=== PATIENT | female | born 2000 | race African-American/Black ===

== ENCOUNTER 2022-03-13 19:56 | Outpatient (CLI) | payer SELFPAY | END 2022-03-13 19:57 | disposition EMS.NT | LOC: EMS 19:56 | DX: M79.89 Other specified soft tissue disorders (principal) ==

== ENCOUNTER 2022-03-19 08:00 | Outpatient (CLI) | payer OTHER ==
[2022-03-19 23:26] LABS: BACTERIAL VAGINOSIS DNA NEGATIVE (NEGATIVE); CANDIDA GLABRATA DNA NEGATIVE (NEGATIVE); CANDIDA GROUP DNA POSITIVE (NEGATIVE); CANDIDA KRUSEI DNA NEGATIVE (NEGATIVE); TRICHOMONAS VAGINALIS DNA NEGATIVE (NEGATIVE)
[2022-03-20 00:09] LABS: CHLAMYDIA TRACHOMATIS DNA NEGATIVE (NEGATIVE); NEISSERIA GONORRHOEAE DNA NEGATIVE (NEGATIVE)
[2022-03-21 05:07] LABS: RPR Non Reactive (Non Reactive)
[2022-03-21 08:07] LABS: HIV SCREEN 4TH GENERATION Non Reactive (Non Reactive)
[2022-03-21 11:08] LABS: HCV AB 0.2 s/co ratio (0.0-0.9)
[2022-03-22 09:08] LABS: HSV 1 IGG TYPE SPEC >62.20 index (0.00-0.90); HSV 2 IGG TYPE SPEC <0.91 index (0.00-0.90)
== END 2022-03-19 23:59 | disposition home or self-care (01) ==
LOC: LAB.N 08:00
PROVIDERS: ATTEND Family Medicine
DX: Z11.3 Encounter for screening for infections with a predominantly sexual mode of transmission (principal)
CPT/HCPCS: 36415; 81514; 86592; 86695; 86696; 86803; 87389; 87491; 87591; 87661

== ENCOUNTER 2022-06-18 08:00 | Outpatient (CLI) | payer OTHER ==
[2022-06-19 10:48] LABS: CHLAMYDIA TRACHOMATIS DNA NEGATIVE (NEGATIVE); NEISSERIA GONORRHOEAE DNA NEGATIVE (NEGATIVE)
[2022-06-19 13:16] LABS: BACTERIAL VAGINOSIS DNA NEGATIVE (NEGATIVE); CANDIDA GROUP DNA POSITIVE (NEGATIVE); CANDIDA KRUSEI DNA NEGATIVE (NEGATIVE); TRICHOMONAS VAGINALIS DNA NEGATIVE (NEGATIVE)
[2022-06-19 13:17] LABS: CANDIDA GLABRATA DNA NEGATIVE (NEGATIVE)
== END 2022-06-18 23:59 | disposition home or self-care (01) ==
LOC: LAB 08:00
PROVIDERS: ATTEND Nurse Practitioner
DX: L29.2 Pruritus vulvae (principal)
CPT/HCPCS: 81514; 87086; 87491; 87591; 87661

== ENCOUNTER 2022-07-20 08:00 | Outpatient (CLI) | payer OTHER ==
[2022-07-21 19:42] LABS: BACTERIAL VAGINOSIS DNA NEGATIVE (NEGATIVE); CANDIDA GLABRATA DNA NEGATIVE (NEGATIVE); CANDIDA GROUP DNA POSITIVE (NEGATIVE); CANDIDA KRUSEI DNA NEGATIVE (NEGATIVE); TRICHOMONAS VAGINALIS DNA NEGATIVE (NEGATIVE)
== END 2022-07-20 23:59 | disposition home or self-care (01) ==
LOC: LAB.N 08:00
PROVIDERS: ATTEND Registered Nurse
DX: R82.79 Other abnormal findings on microbiological examination of urine (principal); L29.8 Other pruritus; N89.8 Other specified noninflammatory disorders of vagina
CPT/HCPCS: 81514; 87086

== ENCOUNTER 2022-09-11 18:12 | Emergency (ER) | payer OTHER ==
[2022-09-11] MEDS ORDERED: METOCLOPRAMIDE 10 MG/2 ML VIAL IVP STA (18:28)
[2022-09-11] MEDS ORDERED: SODIUM CHLORIDE 0.9% 1,000 ML IV STA (18:28)
--- NOTE | 2022-09-11 18:34 | ED Physician Documentation ---
History of Present Illness - Stated complaint Stated Complaint: VOMITING - Chief complaint Chief Complaint: Abd Pain - History obtained from History obtained from: Patient - Additonal information Additional information: 22-year-old G1 at approximately 7 weeks whose had vomiting for the last 3 weeks. Has not sought medical care before tonight. There is no associated abdominal pain, pelvic pain, cramping or bleeding. PD PAST MEDICAL HISTORY - Present Medications Home Medications: Ambulatory Orders Medication Instructions Recorded Confirmed Metoclopramide [Reglan] 10 mg PO Q6H PRN #20 tablet 09/11/22 - Allergies Allergies/Adverse Reactions: Allergies Allergy/AdvReac Type Severity Reaction Status Date / Time No Known Drug Allergies Allergy Verified 09/11/22 18:19 PD ED PE NORMAL - Vitals Vital signs reviewed: Yes - General General: Alert and oriented X 3, No acute distress - Abdomen Abdomen: Soft, Non tender - Neuro Neuro: Alert and oriented X 3, Normal speech Results - Vitals Vitals: Vital Signs - 24 hr 09/11/22 18:14 Temperature 36.6 C Heart Rate 81 Respiratory 18 Rate Blood Pressure 141/90 H O2 Saturation 100 Oxygen O2 Source Room air - Labs Labs: Laboratory Tests 09/11/22 18:41 Sodium 135 Potassium 3.5 Chloride 104 Carbon Dioxide 24 Anion Gap 7.0 BUN 7 Creatinine 0.7 Estimated GFR (MDRD) 126 Glucose 95 Calcium 8.9 PD Medical Decision Making - ED course ED course: 22-year-old woman with hyperemesis gravidarum. Benign exam. BMP normal. Feeling much better after IV fluids and Reglan. Departure - Departure Disposition: 01 Home, Self Care Clinical Impression: Hyperemesis gravidarum Instructions: ED Preg Morning Sickness Prescriptions: Metoclopramide [Reglan] 10 mg PO Q6H PRN #20 tablet PRN Reason: nausea or headache Comments: I sent your prescription electronically to [facility] in [place]. Follow-up with your PCM call on Tuesday for an appointment. Return for new or worsening symptoms.
[2022-09-11 19:09] LABS: CALCIUM 8.9 mg/dL (8.5-10.3); CREATININE 0.7 mg/dL (0.4-1.0); POTASSIUM 3.5 mmol/L (3.5-5.0)
[2022-09-11] MEDS ORDERED: ONDANSETRON ODT 4 MG Prepack 2 TL STA (19:25)
[2022-09-11 19:33] VITALS: BP 114/76
== END 2022-09-11 19:44 | disposition home or self-care (01) ==
LOC: ED 18:12
DX: O21.0 Mild hyperemesis gravidarum (principal); Z3A.01 Less than 8 weeks gestation of pregnancy
CPT/HCPCS: 36415; 80048; 96374; 99283; J2765

== ENCOUNTER 2022-09-24 08:00 | Outpatient (CLI) | payer OTHER ==
[2022-09-24 17:01] LABS: BILIRUBIN,URINE NEGATIVE (NEGATIVE); GLUCOSE, URINE (UA) NEGATIVE (NEGATIVE); KETONES,URINE (UA) NEGATIVE (NEGATIVE); LEUKOCYTE ESTERASE, URINE NEGATIVE (NEGATIVE); NITRITE,URINE NEGATIVE (NEGATIVE); OCCULT BLOOD,URINE NEGATIVE (NEGATIVE); PROTEIN,URINE NEGATIVE (NEGATIVE); UROBILINOGEN,URINE 1 (NORMAL) E.U./dL (NORMAL)
[2022-09-24 17:05] LABS: CLARITY,URINE CLEAR (CLEAR)
[2022-09-24 17:43] LABS: BACTERIA,URINE Rare /HPF (None Seen); MUCUS,URINE Moderate Strands; RBC,URINE 0-5 /HPF (0-5); SQUAMOUS EPITHELIAL CELL,UR FEW Squamous (<= Few); WBC,URINE 0-3 /HPF (0-5)
== END 2022-09-24 23:59 | disposition home or self-care (01) ==
LOC: LAB.WC 08:00
PROVIDERS: ATTEND Nurse Practitioner
DX: Z34.90 Encounter for supervision of normal pregnancy, unspecified, unspecified trimester (principal)
CPT/HCPCS: 81001; 87086

== ENCOUNTER 2022-09-26 13:57 | Emergency (ER) | payer OTHER ==
[2022-09-26] MEDS ORDERED: SODIUM CHLORIDE 0.9% 1,000 ML IV STA (14:39)
[2022-09-26] MEDS ORDERED: ONDANSETRON 4 MG/2 ML VIAL IVP STA (14:39)
[2022-09-26 14:43] LABS: BASOPHILS % (AUTO) 0.4 %; EOSINOPHILS # (AUTO) 0.1 10^3/uL (0.0-0.7); EOSINOPHILS % (AUTO) 0.9 %; HCT - HEMATOCRIT 34.8 % (37.0-47.0); HGB - HEMOGLOBIN 11.9 g/dL (12.0-16.0); LYMPHOCYTES # (AUTO) 1.7 10^3/uL (1.5-3.5); LYMPHOCYTES % (AUTO) 24.2 %; MEAN CORPUSCULAR HEMOGLOBIN 31.2 pg (27.0-31.0); MEAN CORPUSCULAR HGB CONC 34.2 g/dL (32.0-36.0); MEAN CORPUSCULAR VOLUME 91.1 fL (81.0-99.0); MEAN PLATELET VOLUME 10.4 fL (7.9-10.8); MONOCYTES # (AUTO) 0.5 10^3/uL (0.0-1.0); MONOCYTES % (AUTO) 7.3 %; NEUTROPHILS # (AUTO) 4.6 10^3/uL (1.5-6.6); NEUTROPHILS % (AUTO) 66.9 %; PLT - PLATELET COUNT 250 10^3/uL (130-450); RED BLOOD COUNT 3.82 10^6/uL (4.20-5.40); RED CELL DISTRIBUTION WIDTH 11.2 % (12.0-15.0); WHITE BLOOD COUNT 6.9 x10^3/uL (4.8-10.8)
--- NOTE | 2022-09-26 14:46 | ED Physician Documentation ---
History of Present Illness - Stated complaint Stated Complaint: FEMALE - Chief complaint Chief Complaint: Abd Pain - Additonal information Additional information: 22-year-old female presents emergency department for evaluation of vaginal spotting, uncontrolled vomiting and left-sided abdominal pain. Currently . G1, P0. LMP 07/22/2022. Has not yet established with OB but is scheduled to in early October. Has not yet had an ultrasound of the . Was seen previously in this ER for hyperemesis gravidarum. She was discharged with prescription of Reglan which she reports is not helping the nausea though she did find the Zofran that was administered in the ER previously helpful. Denies any previous past medical history. Review of Systems Constitutional: denies: Fever Cardiac: reports: Reviewed and negative Respiratory: reports: Reviewed and negative GI: reports: Abdominal Pain, Nausea, Vomiting : reports: LMP (07/22/2022), Vaginal bleeding Skin: reports: Reviewed and negative PD PAST MEDICAL HISTORY - Present Medications Home Medications: Ambulatory Orders Medication Instructions Recorded Confirmed Ondansetron Odt [Zofran] 4 mg TL Q6H PRN #10 tablet 09/26/22 - Allergies Allergies/Adverse Reactions: Allergies Allergy/AdvReac Type Severity Reaction Status Date / Time No Known Drug Allergies Allergy Verified 09/26/22 14:11 PD ED PE NORMAL - General General: Alert and oriented X 3, No acute distress (Actively vomiting), Well developed/nourished - HEENT HEENT: PERRL - Neck Neck: Supple, no meningeal sign - Cardiac Cardiac: RRR, No murmur - Respiratory Respiratory: No respiratory distress - Abdomen Abdomen: Normal bowel sounds, Soft. No: Non tender (Mild nonfocal left lower quadrant abdominal tenderness elicited without guarding or rebound) - Back Back: No CVA TTP - Derm Derm: Normal color, Warm and dry, No rash - Extremities Extremities: No deformity - Neuro Neuro: Alert and oriented X 3 Eye Opening: Spontaneous Motor: Obeys Commands Verbal: Oriented GCS Score: 15 Results - Vitals Vitals: Vital Signs - 24 hr 09/26/22 09/26/22 14:08 16:23 Temperature 36.6 C Heart Rate 86 92 Respiratory 16 16 Rate Blood Pressure 126/74 123/95 H O2 Saturation 100 100 Oxygen O2 Source Room air - Labs Labs: Laboratory Tests 09/26/22 09/26/22 09/26/22 14:30 14:30 14:30 WBC 6.9 RBC 3.82 L Hgb 11.9 L Hct 34.8 L MCV 91.1 MCH 31.2 H MCHC 34.2 RDW 11.2 L Plt Count 250 MPV 10.4 Neut # (Auto) 4.6 Lymph # (Auto) 1.7 [place] # (Auto) 0.5 Eos # (Auto) 0.1 Baso # (Auto) 0.0 Absolute Nucleated RBC 0.00 Nucleated RBC % 0.0 Sodium 136 Potassium 3.6 Chloride 104 Carbon Dioxide 25 Anion Gap 7.0 BUN 7 Creatinine 0.6 Estimated GFR (MDRD) 150 Glucose 102 H Calcium 8.7 HCG, Quant Urine Color Urine Clarity Urine pH Ur Specific [place] Urine Protein Urine Glucose (UA) Urine Ketones Urine Occult Blood Urine Nitrite Urine Bilirubin Urine Urobilinogen Ur Leukocyte Esterase Urine RBC Urine WBC Ur Squamous Epith Cells Amorphous Sediment Urine Bacteria Ur Microscopic Review Urine Culture Comments Blood Type O POSITIVE 09/26/22 09/26/22 14:30 15:25 WBC RBC Hgb Hct MCV MCH MCHC RDW Plt Count MPV Neut # (Auto) Lymph # (Auto) [place] # (Auto) Eos # (Auto) Baso # (Auto) Absolute Nucleated RBC Nucleated RBC % Sodium Potassium Chloride Carbon Dioxide Anion Gap BUN Creatinine Estimated GFR (MDRD) Glucose Calcium HCG, Quant 244037.00 Urine Color YELLOW Urine Clarity HAZY Urine pH 7.0 Ur Specific [place] 1.025 Urine Protein NEGATIVE Urine Glucose (UA) 100 H Urine Ketones NEGATIVE Urine Occult Blood LARGE H Urine Nitrite NEGATIVE Urine Bilirubin NEGATIVE Urine Urobilinogen 0.2 (NORMAL) Ur Leukocyte Esterase NEGATIVE Urine RBC 0-5 Urine WBC 0-3 Ur Squamous Epith Cells MANY Squamous H Amorphous Sediment Rare Urine Bacteria Few Ur Microscopic Review INDICATED Urine Culture Comments NOT INDICATED Blood Type - Rads (name of study) OB US Relevant Findings:: Other (Per neurology technologist positive IUP 10 weeks 1 day with heart rate of 187. There is a 2 cm subchorionic hemorrhage at the fundus. She does have a right-sided corpus luteal cyst.) PD Medical Decision Making - ED course Complexity details: reviewed results, re-evaluated patient, considered differential, d/w patient ED course: 22-year-old female presents the emergency department for evaluation of vaginal spotting in first trimester . She is Rh+. She had also reported some left lower quadrant abdominal pain. Given that she has not yet had an ultrasound established IUP 1 was completed today in the ER. I did obtain CBC, BMP and urinalysis. Per my interpretation no acute worrisome findings. An ultrasound showed a 10-week live fetus with heart rate of 189. There was an associated 2 cm perigestational/subchorionic hemorrhage. This finding was discussed with the patient. She did get improvement in her nausea and vomiting with the use of a liter of fluids and Zofran. Previously Reglan had been prescribed for her. I have sent a prescription for Zofran to the [facility] as it seems effective in managing her nausea. The usual emergent return precautions were discussed for worsening symptoms. Departure - Departure Disposition: 01 Home, Self Care Clinical Impression: Threatened miscarriage in early , Hyperemesis gravidarum Subchorionic hemorrhage in first trimester Qualifiers: Fetus number: single or unspecified fetus Qualified Code(s): O41.8X10 - Other specified disorders of amniotic fluid and membranes, first trimester, not applicable or unspecified; O46.8X1 - Other antepartum hemorrhage, first trimester Condition: Stable Record reviewed to determine appropriate education?: Yes Instructions: ED Preg Morning Sickness Prescriptions: Ondansetron Odt [Zofran] 4 mg TL Q6H PRN #10 tablet PRN Reason: Nausea / Vomiting Comments: You are seen today because you have been having some persistent nausea and vomiting despite the use of metoclopramide as well as noticing some vaginal bleeding and spotting. Your labs today appear normal for . There is no infection in your urine. The ultrasound shows that you are 10 weeks 1 day along with a fetus that had a heart rate of 189 which is normal. There was no associated finding of a perigestational bleed or subchorionic hemorrhage. This is where the placenta can begin to tear away from the uterus wall. This can lead to miscarriage but many women who have a subchorionic hemorrhage will go on to have a normal . Please discuss this with the women's health clinic. In order to help manage her nausea I have sent a prescription for Zofran medicine that you take under the tongue to the [facility] in [place]. A dickson to helping prevent nausea is frequent snacks and sips of liquids. If at any point you have heavy vaginal bleeding such as saturating a pad or tampon every hour for 4 more hours, have fevers, uncontrolled vomiting then please return to the ER.
[2022-09-26 14:58] LABS: CALCIUM 8.7 mg/dL (8.5-10.3); CREATININE 0.6 mg/dL (0.4-1.0); POTASSIUM 3.6 mmol/L (3.5-5.0)
[2022-09-26 15:31] LABS: BILIRUBIN,URINE NEGATIVE (NEGATIVE); KETONES,URINE (UA) NEGATIVE (NEGATIVE); NITRITE,URINE NEGATIVE (NEGATIVE); OCCULT BLOOD,URINE LARGE (NEGATIVE); PROTEIN,URINE NEGATIVE (NEGATIVE); UROBILINOGEN,URINE 0.2 (NORMAL) E.U./dL (NORMAL)
[2022-09-26 15:34] LABS: CLARITY,URINE HAZY (CLEAR)
--- NOTE | 2022-09-26 15:38 | Ultrasound Report ---
PROCEDURE: OB First Trimester INDICATIONS: vaginal bleeding; llq pain OUTSIDE/PRIOR DATING DATA: Last menstrual period (LMP): 07/22/2022. LMP-based estimated date of delivery (GAYATHRI): 04/28/2023. First dating scan (date and location): 09/26/2022. Estimated date of delivery (GAYATHRI) from first dating scan: 04/23/2023. TECHNIQUE: Real-time scanning was performed of the fetus and maternal pelvic organs, with image documentation. COMPARISON: None FINDINGS: Embryo: Mean gestational sac diameter is 4.5 cm corresponding with 10 weeks 0 days. [place]-rump lengt h is 3.2 cm corresponding with 10 weeks 1 day. Heart rate: 185 bpm. Other: No perigestational fluid collection. Measurement variability in dating: +/- 4 weeks by LMP, +/- 7 days by mean sac diameter (use before 6 weeks gestation if crown-rump length not able to be measured), +/- 5 days by crown-rump length (6-12 weeks gestation). Maternal organs: Ovaries demonstrate a right corpus luteal cyst. The cervix is closed. IMPRESSION: 1. Single live intrauterine with an ultrasound gestational age of 10 weeks 1 day. 2. Subchorionic hemorrhage adjacent to the fundus measuring 2.1 x 1.8 x 2.3 cm. Dominant Reviewed by: Giovanni Alvarez on 09/26/2022 2:36 PM [email or web address] Approved by: Giovanni Alvarez on 09/26/2022 2:36 PM AKDT Station ID: [id number]
[2022-09-26 15:50] LABS: GLUCOSE, URINE (UA) 100 mg/dL (NEGATIVE); LEUKOCYTE ESTERASE, URINE NEGATIVE (NEGATIVE)
[2022-09-26 16:06] LABS: AMORPHOUS SEDIMENT,UR Rare /LPF; BACTERIA,URINE Few /HPF (None Seen); RBC,URINE 0-5 /HPF (0-5); SQUAMOUS EPITHELIAL CELL,UR MANY Squamous (<= Few); WBC,URINE 0-3 /HPF (0-5)
[2022-09-26 16:29] VITALS: BP 123/95
== END 2022-09-26 17:00 | disposition home or self-care (01) ==
LOC: ED 13:57
DX: O20.0 Threatened abortion (principal); O21.0 Mild hyperemesis gravidarum; Z3A.10 10 weeks gestation of pregnancy
CPT/HCPCS: 36415; 80048; 81001; 81003; 84702; 85025; 86900; 86901; 87086; 96374; 99284

== ENCOUNTER 2022-10-12 16:37 | Outpatient (CLI) | payer OTHER ==
[2022-10-12 21:34] LABS: BASOPHILS % (AUTO) 0.5 %; EOSINOPHILS # (AUTO) 0.1 10^3/uL (0.0-0.7); EOSINOPHILS % (AUTO) 1.2 %; HCT - HEMATOCRIT 32.9 % (37.0-47.0); HGB - HEMOGLOBIN 11.1 g/dL (12.0-16.0); LYMPHOCYTES # (AUTO) 1.7 10^3/uL (1.5-3.5); LYMPHOCYTES % (AUTO) 25.9 %; MEAN CORPUSCULAR HEMOGLOBIN 31.4 pg (27.0-31.0); MEAN CORPUSCULAR HGB CONC 33.7 g/dL (32.0-36.0); MEAN CORPUSCULAR VOLUME 92.9 fL (81.0-99.0); MEAN PLATELET VOLUME 11.8 fL (7.9-10.8); MONOCYTES # (AUTO) 0.6 10^3/uL (0.0-1.0); MONOCYTES % (AUTO) 8.5 %; NEUTROPHILS # (AUTO) 4.2 10^3/uL (1.5-6.6); NEUTROPHILS % (AUTO) 63.6 %; PLT - PLATELET COUNT 256 10^3/uL (130-450); RED BLOOD COUNT 3.54 10^6/uL (4.20-5.40); RED CELL DISTRIBUTION WIDTH 11.9 % (12.0-15.0); WHITE BLOOD COUNT 6.6 x10^3/uL (4.8-10.8)
[2022-10-12 23:12] LABS: CHLAMYDIA TRACHOMATIS DNA NEGATIVE (NEGATIVE); NEISSERIA GONORRHOEAE DNA NEGATIVE (NEGATIVE)
[2022-10-12 23:59] LABS: BACTERIAL VAGINOSIS DNA POSITIVE (NEGATIVE); CANDIDA GLABRATA DNA NEGATIVE (NEGATIVE); CANDIDA GROUP DNA NEGATIVE (NEGATIVE); CANDIDA KRUSEI DNA NEGATIVE (NEGATIVE); TRICHOMONAS VAGINALIS DNA NEGATIVE (NEGATIVE)
[2022-10-14 04:30] LABS: HBsAG SCREEN Negative (Negative); HCV AB Non Reactive (Non Reactive); HIV SCREEN 4TH GENERATION Non Reactive (Non Reactive)
[2022-10-14 08:10] LABS: RPR Non Reactive (Non Reactive)
[2022-10-14 10:09] LABS: VARICELLA-ZOSTER AB IGG 304 index (Immune >165)
== END 2022-10-12 16:38 | disposition home or self-care (01) ==
LOC: LAB.N 16:37
PROVIDERS: ATTEND Nurse Practitioner
DX: O99.891 Other specified diseases and conditions complicating pregnancy (principal); N89.8 Other specified noninflammatory disorders of vagina
CPT/HCPCS: 36415; 81514; 85025; 86592; 86762; 86787; 86803; 86850; 86900; 86901; 87340; 87389; 87491; 87591; 87661

== ENCOUNTER 2022-11-23 16:15 | Outpatient (CLI) | payer OTHER ==
[2022-11-26 19:07] LABS: AFP MOM 1.17 (.); AFP VALUE 44.9 ng/mL (.); DIA MOM 0.77 (.); DIA VALUE 95.46 pg/mL (.); DSR (BY AGE) 1 IN 1067 (.); DSR (SECOND TRIMESTER) 1 IN 10000 (.); GEST. AGE ON COLLECTION DATE 17.7 WEEKS (.); HCG MOM 0.96 (.); HCG VALUE 23701 mIU/mL (.); INSULIN DEP DIABETES No (.); MATERNAL AGE AT EDD 24.1 yr (.); MULTIPLE GESTATION No (.); OPEN SPINA BIFIDA RISK 1 IN 10000 (.); RACE Black (.); RESULTS Report (.); TEST RESULTS *Screen Negative* (.); TRISOMY 18 RISK Not increased (.); UE3 MOM 1.46 (.); UE3 VALUE 1.79 ng/mL (.); WEIGHT 213 lbs (.)
== END 2022-11-23 16:16 | disposition home or self-care (01) ==
LOC: LAB.N 16:15
PROVIDERS: ATTEND Nurse Practitioner
DX: Z36.89 Encounter for other specified antenatal screening (principal)
CPT/HCPCS: 36415; 81511

== ENCOUNTER 2022-12-03 13:33 | Outpatient (CLI) | payer OTHER ==
--- NOTE | 2022-12-04 10:10 | Ultrasound Report ---
PROCEDURE: OB Detailed Eval INDICATIONS: SUPERVISION OF OUTSIDE/PRIOR DATING DATA: Last menstrual period (LMP): 07/22/2022. LMP-based estimated date of delivery (GAYATHRI): 04/28/2023. First dating scan (date and location): 09/26/2022. Estimated date of delivery (GAYATHRI) from first dating scan: 04/23/2023. TECHNIQUE: Real-time scanning was performed of the fetus, with image documentation and biometric measurements. COMPARISON: 09/26/2022 FINDINGS: General: A single live intrauterine gestation is present. Presentation: Vertex Placenta: Placental position is anterior, without previa. Amniotic fluid index: 20.9 cm, within normal limits for gestational age. heart rate: 137 beats per minute. Maternal cervical canal: 3.4 cm long; normal length is 2.5 cm or more. biometrics: Biparietal diameter: 4.7 cm equals 20 weeks 2 days Head circumference: 17.3 cm equals 19 weeks 6 days Abdominal circumference: 13.5 cm equals 19 weeks 0 days Femur length: 3 cm equals 19 weeks 2 days Estimated gestational age from initial scan: 19 weeks 1 day Composite gestational age from present scan: 19 weeks 3 days Estimated weight and percentile: 280 g, 50th percentile Measurement variability in biometric dating: +/- 10 days from 12-20 weeks gestation, +/- 2 weeks from 20-30 weeks gestation, +/- 3 weeks at 30 weeks gestation or later. Anatomic survey: Neuro: Ventricles are normal at less than 10 mm. Cisterna magna is normal at 3-11 mm. Cerebellum i s normal in size and morphology. Face: Nose and lips, facial profile are normal. Spine: No evidence for spina bifida. Heart: 42 report heart is not well seen. The cardiac outflow tracts are within normal limits. Diaphragm: Diaphragm is intact. Stomach: Left-sided stomach is present. Kidneys: No hydronephrosis. Normal is less than 5 mm in 2nd trimester, less than 7 mm in 3rd trimester. Cord: 3 vessel cord is seen. The cord insertion is not well seen. Bladder: Normal in size. Extremities: All 4 extremities are visualized. IMPRESSION: Single live intrauterine . Normal interval growth compared to the prior ultrasound examination. No anatomic abnormalities are identified. However, the four-chamber heart view is not well seen and t he cord insertion is also not well seen. - Please consider a follow-up ultrasound in 2-4 weeks for further evaluation. Reviewed by: Saurabh Bhagat MD on 12/04/2022 9:08 AM VIELKA Approved by: Saurabh Bhagat MD on 12/04/2022 9:08 AM VIELKA Station ID: [id number]
== END 2022-12-03 13:34 | disposition home or self-care (01) ==
LOC: DI 13:33
PROVIDERS: ATTEND Nurse Practitioner
DX: Z34.90 Encounter for supervision of normal pregnancy, unspecified, unspecified trimester (principal); Z36.89 Encounter for other specified antenatal screening

== ENCOUNTER 2023-01-13 15:24 | Outpatient (CLI) | payer OTHER ==
[2023-01-13 21:05] LABS: HCT - HEMATOCRIT 33.6 % (37.0-47.0); HGB - HEMOGLOBIN 11.4 g/dL (12.0-16.0); MEAN CORPUSCULAR HGB CONC 33.9 g/dL (32.0-36.0); MEAN CORPUSCULAR VOLUME 94.4 fL (81.0-99.0); MEAN PLATELET VOLUME 12.3 fL (7.9-10.8); RED BLOOD COUNT 3.56 10^6/uL (4.20-5.40); RED CELL DISTRIBUTION WIDTH 11.9 % (12.0-15.0); WHITE BLOOD COUNT 9.8 x10^3/uL (4.8-10.8)
== END 2023-01-13 15:25 | disposition home or self-care (01) ==
LOC: LAB.N 15:24
PROVIDERS: ATTEND Obstetrics & Gynecology
DX: Z34.90 Encounter for supervision of normal pregnancy, unspecified, unspecified trimester (principal); Z36.89 Encounter for other specified antenatal screening
CPT/HCPCS: 36415; 82950; 85027

== ENCOUNTER 2023-01-30 09:26 | Emergency (ER) | payer OTHER ==
[2023-01-30 09:54] VITALS: O2SAT 98
[2023-01-30] MEDS ORDERED: OXYMETAZOLINE HCL 100 SPRAYS BOTTLE NAS STA (11:14)
[2023-01-30] MEDS ORDERED: ACETAMINOPHEN 325 MG TABLET PO STA (11:14)
--- NOTE | 2023-01-30 12:01 | ED Physician Documentation ---
PD HPI HEENT - Stated complaint Stated Complaint: NOSEBLEED - Chief complaint Chief Complaint: Heent - History obtained from History obtained from: Patient - Additional information Additional information: 22yoF presents for nosebleed. Patient states that she gets occasional nosebleeds, but the one this morning was much heavier than normal with clots. She attempted to tilt her head back, but the blood went into her throat. In the ED patient's bleeding has resolved. Denies hx of seasonal allergies. Patient is 27wks . Denies issues with baby. Review of Systems Constitutional: denies: Fever, Chills Eyes: denies: Loss of vision, Decreased vision, Photophobia Ears: denies: Loss of hearing, Ear pain, Drainage/discharge Nose: reports: Epistaxis. denies: Rhinorrhea / runny nose, Foreign Body : reports: Now EGA. denies: Dysuria, Frequency, Hesitancy Skin: denies: Rash, Lesions, Abrasion (s) PD PAST MEDICAL HISTORY - Past Medical History Past Medical History: No - Past Surgical History Past Surgical History: No - Present Medications Home Medications: Ambulatory Orders Medication Instructions Recorded Confirmed No Known Home Medications 01/12/23 01/12/23 - Allergies Allergies/Adverse Reactions: Allergies Allergy/AdvReac Type Severity Reaction Status Date / Time No Known Drug Allergies Allergy Verified 09/26/22 14:11 - Social History Does the pt smoke?: No Smoking Status: Never smoker PD ED PE NORMAL - Vitals Vital signs reviewed: Yes - General General: Alert and oriented X 3, No acute distress, Well developed/nourished - HEENT HEENT: Atraumatic, PERRL, EOMI, Other (nasal mucosa erythematous, no active bleeding) - Neck Neck: Supple, no meningeal sign - Cardiac Cardiac: RRR - Abdomen Abdomen: Soft, Non tender, Non distended - Derm Derm: Normal color, Warm and dry, No rash - Extremities Extremities: No deformity, No tenderness to palpate, Normal ROM s pain - Neuro Neuro: Alert and oriented X 3, network control operator 2-12 intact - Psych Psych: Normal mood, Normal affect Results - Vitals Vitals: Vital Signs - 24 hr 01/30/23 01/30/23 09:44 12:13 Temperature 37 C Heart Rate 95 94 Respiratory 20 15 Rate Blood Pressure 129/72 127/58 L O2 Saturation 98 98 Oxygen O2 Source Room air - Labs Labs: Laboratory Tests 01/30/23 11:48 Urine Color YELLOW Urine Clarity SL. CLOUDY Urine pH 7.0 Ur Specific [place] 1.025 Urine Protein TRACE Urine Glucose (UA) NEGATIVE Urine Ketones NEGATIVE Urine Occult Blood NEGATIVE Urine Nitrite NEGATIVE Urine Bilirubin NEGATIVE Urine Urobilinogen 1 (NORMAL) Ur Leukocyte Esterase NEGATIVE Urine RBC 0-5 Urine WBC 0-3 Ur Squamous Epith Cells MOD Squamous H Urine Bacteria Few Urine Mucus Moderate Strands Ur Microscopic Review INDICATED Urine Culture Comments NOT INDICATED PD Medical Decision Making - ED course Complexity details: re-evaluated patient, considered differential, d/w patient ED course: now-resolved nosebleed. Nasal mucosa erythemaous, possibly allergic related vs general irritation from cold weather. Counseled on appropriate nosebleed maneuvers at home. Afrin administered in department. UA negative for bacteria. Departure - Departure Disposition: 01 Home, Self Care Clinical Impression: Nosebleed Condition: Stable Instructions: Nosebleed Comments: You may use nasal saline sprays to keep your mucous membranes moist. If you experience another nosebleed pinch the fleshy part of your nose and lean forward, holding this position for 20 minutes. You can also take [id number] Afrin if you experience a nosebleed, however be careful to not use this medication for longer than 3 days in a row as it can lead to dependence (your nose will get congested and stuffed up without it), however it is a great short-term medication for nosebleeds Forms: PCP List Discharge Date/Time: 01/30/23 12:14
[2023-01-30 12:19] LABS: BILIRUBIN,URINE NEGATIVE (NEGATIVE); GLUCOSE, URINE (UA) NEGATIVE (NEGATIVE); KETONES,URINE (UA) NEGATIVE (NEGATIVE); LEUKOCYTE ESTERASE, URINE NEGATIVE (NEGATIVE); NITRITE,URINE NEGATIVE (NEGATIVE); OCCULT BLOOD,URINE NEGATIVE (NEGATIVE); PROTEIN,URINE TRACE mg/dL (NEGATIVE); UROBILINOGEN,URINE 1 (NORMAL) E.U./dL (NORMAL)
[2023-01-30 12:20] LABS: CLARITY,URINE SL. CLOUDY (CLEAR)
[2023-01-30 12:21] VITALS: BP 127/58
[2023-01-30 12:40] LABS: BACTERIA,URINE Few /HPF (None Seen); MUCUS,URINE Moderate Strands; RBC,URINE 0-5 /HPF (0-5); SQUAMOUS EPITHELIAL CELL,UR MOD Squamous (<= Few); WBC,URINE 0-3 /HPF (0-5)
[2023-01-30] MEDS ORDERED: PROMETHAZINE INJ 25 MG in SODIUM CHLORIDE 0.9% 50 ML IV STA (16:08)
== END 2023-01-30 12:14 | disposition home or self-care (01) ==
LOC: ED 09:26
DX: O99.891 Other specified diseases and conditions complicating pregnancy (principal); R04.0 Epistaxis; Z3A.27 27 weeks gestation of pregnancy
CPT/HCPCS: 81001; 99282; 99283; A9270; 81003; 87086

== ENCOUNTER 2023-02-15 15:34 | Outpatient (CLI) | payer OTHER ==
--- NOTE | 2023-02-15 20:33 | Ultrasound Report ---
PROCEDURE: OB F/U or Repeat INDICATIONS: EXCESSIVE WEIGHT GAIN OUTSIDE/PRIOR DATING DATA: Last menstrual period (LMP): 07/22/2022. LMP-based estimated date of delivery (GAYATHRI): 04/28/2023. First dating scan (date and location): 09/26/2022. Estimated date of delivery (GAYATHRI) from first dating scan: 04/23/2023. The below data below was generated using the ultrasound GAYATHRI of 04/23/2023 TECHNIQUE: Real-time scanning was performed of the fetus, with image documentation and biometric measurements. Endovaginal scanning: Not performed. COMPARISON: OB ultrasound 12/13/2022 FINDINGS: General: A single living intrauterine gestation is present. Presentation: Cephalic Placenta: Placental position is anterior, without previa. Amniotic fluid index: 13.9 cm, within normal limits for gestational age. heart rate: 140 beats per minute. Maternal cervical canal: Not well visualized. biometrics: Biparietal diameter: 7.7 cm, 30 weeks 5 days, 48th percentile Head circumference: 28.0 cm, 30 weeks 4 days, 20th percentile Abdominal circumference: 26.3 cm, 30 weeks 3 days, 44th percentile Femur length: 6.0 cm, 31 weeks 0 days, 53rd percentile Estimated gestational age from initial scan: 30 weeks 3 days Composite gestational age from present scan: 30 weeks 5 days Estimated weight and percentile: 613 g, 45th percentile Measurement variability in biometric dating: +/- 10 days from 12-20 weeks gestation, +/- 2 weeks from 20-30 weeks gestation, +/- 3 weeks at 30 weeks gestation or more. Other: Not applicable. IMPRESSION: Single live intrauterine with appropriate interval growth. Estimated checo ght is at the 45th percentile for gestational age. Reviewed by: Maurisio Richards MD on 02/15/2023 8:31 PM PST Approved by: Maurisio Richards MD on 02/15/2023 8:31 PM PST Station ID: [id number]
== END 2023-02-15 15:35 | disposition home or self-care (01) ==
LOC: DI 15:34
PROVIDERS: ATTEND Obstetrics & Gynecology
DX: O26.03 Excessive weight gain in pregnancy, third trimester (principal); Z3A.30 30 weeks gestation of pregnancy

== ENCOUNTER 2023-03-03 16:23 | Outpatient (CLI) | payer OTHER ==
[2023-03-03 16:47] LABS: BASOPHILS % (AUTO) 0.2 %; EOSINOPHILS # (AUTO) 0.1 10^3/uL (0.0-0.7); EOSINOPHILS % (AUTO) 0.9 %; HCT - HEMATOCRIT 33.7 % (37.0-47.0); HGB - HEMOGLOBIN 11.3 g/dL (12.0-16.0); LYMPHOCYTES # (AUTO) 1.5 10^3/uL (1.5-3.5); LYMPHOCYTES % (AUTO) 15.4 %; MEAN CORPUSCULAR HEMOGLOBIN 30.1 pg (27.0-31.0); MEAN CORPUSCULAR HGB CONC 33.5 g/dL (32.0-36.0); MEAN CORPUSCULAR VOLUME 89.9 fL (81.0-99.0); MEAN PLATELET VOLUME 10.5 fL (7.9-10.8); MONOCYTES # (AUTO) 0.9 10^3/uL (0.0-1.0); MONOCYTES % (AUTO) 8.9 %; NEUTROPHILS # (AUTO) 7.3 10^3/uL (1.5-6.6); NEUTROPHILS % (AUTO) 72.9 %; PLT - PLATELET COUNT 267 10^3/uL (130-450); RED BLOOD COUNT 3.75 10^6/uL (4.20-5.40); RED CELL DISTRIBUTION WIDTH 11.6 % (12.0-15.0)
[2023-03-03 16:55] LABS: ALBUMIN 3.6 g/dL (3.2-5.5); ALBUMIN/GLOBULIN RATIO 1.2 (1.0-2.2); BILIRUBIN,TOTAL 0.3 mg/dL (0.2-1.0); CALCIUM 9.4 mg/dL (8.5-10.3); CREATININE 0.7 mg/dL (0.6-1.3); POTASSIUM 3.8 mmol/L (3.5-4.5); TOTAL PROTEIN 6.6 g/dL (6.4-8.9)
[2023-03-03 17:15] LABS: FERRITIN 5.8 ng/mL (11.0-306.8)
[2023-03-03 17:51] LABS: CREATININE,URINE 224.5 mg/dL; PROTEIN/CREATININE RATIO,URINE 0.2 (<=0.2)
== END 2023-03-03 16:24 | disposition home or self-care (01) ==
LOC: LAB 16:23
PROVIDERS: ATTEND Nurse Practitioner
DX: G44.89 Other headache syndrome (principal)
CPT/HCPCS: 36415; 80053; 82570; 82728; 84156; 85025

== ENCOUNTER 2023-03-24 08:00 | Outpatient (CLI) | payer OTHER ==
[2023-03-24 17:15] LABS: CREATININE,URINE 98.9 mg/dL; PROTEIN/CREATININE RATIO,URINE 0.2 (<=0.2)
== END 2023-03-24 23:59 | disposition home or self-care (01) ==
LOC: LAB 08:00
PROVIDERS: ATTEND Nurse Practitioner
DX: O26.03 Excessive weight gain in pregnancy, third trimester (principal)
CPT/HCPCS: 82570; 84156

== ENCOUNTER 2023-03-24 14:22 | Outpatient (CLI) | payer OTHER ==
--- NOTE | 2023-03-25 00:26 | Ultrasound Report ---
PROCEDURE: OB Follow up INDICATIONS: EXCESSIVE WEIGHT GAIN IN OUTSIDE/PRIOR DATING DATA: Last menstrual period (LMP): 07/22/2022. LMP-based estimated date of delivery (GAYATHRI): 04/28/2023. First dating scan (date and location): 09/26/2022. Estimated date of delivery (GAYATHRI) from first dating scan: 04/23/2023. The below data below was generated using the ultrasound GAYATHRI of 04/23/2023 TECHNIQUE: Real-time scanning was performed of the fetus, with image documentation and biometric measurements. Endovaginal scanning: Not performed. COMPARISON: Ultrasound 02/15/2023 FINDINGS: General: A single living intrauterine gestation is present. Presentation: Cephalic Placenta: Placental position is anterior, without previa. Amniotic fluid index: 10.7 cm, within normal limits for gestational age. heart rate: 136 beats per minute. Maternal cervical canal: Not identified biometrics: Biparietal diameter: 8.9 cm, 36 weeks 1 day, 70% Head circumference: 32.3 cm, 36 weeks 4 days, 40% Abdominal circumference: 33.5 cm, 37 weeks 3 days, 94% Femur length: 6.7 cm, 34 weeks 4 days, 60% Estimated gestational age from initial scan: 35 weeks 5 days Composite gestational age from present scan: 36 weeks 1 day Estimated weight and percentile: 2860 g, 73% Measurement variability in biometric dating: +/- 10 days from 12-20 weeks gestation, +/- 2 weeks from 20-30 weeks gestation, +/- 3 weeks at 30 weeks gestation or more. Other: Not applicable. IMPRESSION: 1.Single live intrauterine consistent with 36 weeks and 1 day. 2.Normal interval growth with estimated weight at the 73rd percentile. Reviewed by: Danie Kim MD on 03/25/2023 12:25 AM PST Approved by: Danie Kim MD on 03/25/2023 12:25 AM PST Station ID: [id number]
== END 2023-03-24 14:23 | disposition home or self-care (01) ==
LOC: DI 14:22
PROVIDERS: ATTEND Nurse Practitioner
DX: O26.03 Excessive weight gain in pregnancy, third trimester (principal); Z3A.36 36 weeks gestation of pregnancy
CPT/HCPCS: 82570; 84156

== ENCOUNTER 2023-04-08 08:00 | Outpatient (CLI) | payer OTHER | END 2023-04-08 23:59 | disposition home or self-care (01) | LOC: LAB.WC 08:00 | PROVIDERS: ATTEND Nurse Practitioner | DX: O99.210 Obesity complicating pregnancy, unspecified trimester (principal); Z36.85 Encounter for antenatal screening for Streptococcus B | CPT/HCPCS: 36415; 80053; 82239; 82570; 84156; 85027; 87797 ==

== ENCOUNTER 2023-04-21 11:30 | Observation (INO) | payer OTHER ==
[2023-04-21] MEDS ORDERED: LABETALOL 20 MG/4 ML SYRINGE IVP PRN ×3 (11:33)
[2023-04-21] MEDS ORDERED: fentaNYL 100 MCG/2 ML VIAL IVP PRN (11:33)
[2023-04-21] MEDS ORDERED: OXYTOCIN/SODIUM CHLORIDE 500 ML IV PRN (11:33)
[2023-04-21] MEDS ORDERED: lidocaine 1% 20 ML MDV ID PRN (11:33)
[2023-04-21] MEDS ORDERED: SODIUM CHLORIDE FLUSH 0.9% 10 ML SYRINGE IVP PRN (11:33)
[2023-04-21] MEDS ORDERED: CARBOPROST TROMETHAMINE 250 MCG/ML AMP IM PRN (11:33)
[2023-04-21] MEDS ORDERED: miSOPROStoL 200 MCG TABLET BC PRN (11:33)
[2023-04-21] MEDS ORDERED: OXYTOCIN 10 UNIT/ML VIAL IM PRN (11:33)
[2023-04-21] MEDS ORDERED: NIFEdipine 10 MG CAPSULE PO PRN (11:33)
[2023-04-21] MEDS ORDERED: hydrALAZINE INJ 20 MG/ML VIAL IVP PRN ×2 (11:33)
[2023-04-21] MEDS ORDERED: miSOPROStoL 200 MCG TABLET PR PRN (11:33)
[2023-04-21] MEDS ORDERED: TRANEXAMIC ACID IN NACL 1,000 MG/100 ML BAG IV PRN (11:33)
[2023-04-21] MEDS ORDERED: METHYLERGONOVINE 0.2 MG/ML VIAL IM PRN (11:33)
[2023-04-21] MEDS ORDERED: TERBUTALINE 1 MG/ML VIAL SUBQ PRN (11:33)
[2023-04-21] MEDS ORDERED: AMPICILLIN 2 GM in SODIUM CHLORIDE 0.9% MINIBAG 100 ML IV ONE (12:00)
[2023-04-21] MEDS ORDERED: SODIUM CHLORIDE FLUSH 0.9% 10 ML SYRINGE IVP SCH (12:00)
[2023-04-21] MEDS: LACTATED RINGERS 1,000 ML IV PRN (12:54)
[2023-04-21 13:09] LABS: BASOPHILS % (AUTO) 0.3 %; EOSINOPHILS # (AUTO) 0.1 10^3/uL (0.0-0.7); EOSINOPHILS % (AUTO) 0.9 %; HCT - HEMATOCRIT 33.7 % (37.0-47.0); HGB - HEMOGLOBIN 11.1 g/dL (12.0-16.0); LYMPHOCYTES # (AUTO) 1.4 10^3/uL (1.5-3.5); LYMPHOCYTES % (AUTO) 18.7 %; MEAN CORPUSCULAR HEMOGLOBIN 29.8 pg (27.0-31.0); MEAN CORPUSCULAR HGB CONC 32.9 g/dL (32.0-36.0); MEAN CORPUSCULAR VOLUME 90.3 fL (81.0-99.0); MEAN PLATELET VOLUME 11.3 fL (7.9-10.8); MONOCYTES # (AUTO) 0.8 10^3/uL (0.0-1.0); MONOCYTES % (AUTO) 10.8 %; NEUTROPHILS # (AUTO) 5.2 10^3/uL (1.5-6.6); NEUTROPHILS % (AUTO) 68.6 %; PLT - PLATELET COUNT 269 10^3/uL (130-450); RED BLOOD COUNT 3.73 10^6/uL (4.20-5.40); RED CELL DISTRIBUTION WIDTH 13.1 % (12.0-15.0); WHITE BLOOD COUNT 7.6 x10^3/uL (4.8-10.8)
[2023-04-21 13:09] LABS: CREATININE,URINE 173.8 mg/dL; PROTEIN/CREATININE RATIO,URINE 0.2 (<=0.2)
[2023-04-21 13:23] LABS: ALBUMIN 3.6 g/dL (3.2-5.5); ALBUMIN/GLOBULIN RATIO 1.2 (1.0-2.2); BILIRUBIN,TOTAL 0.3 mg/dL (0.2-1.0); CALCIUM 9.7 mg/dL (8.5-10.3); CREATININE 0.6 mg/dL (0.6-1.3); TOTAL PROTEIN 6.7 g/dL (6.4-8.9)
[2023-04-21 13:36] VITALS: BP 124/58; O2SAT 100
--- NOTE | 2023-04-21 14:01 | PROVIDER PROGRESS NOTE ---
- HPI Chief Complaint: GI symptoms Current : Vital Signs Temperature 98.1 F 04/21/23 11:44 Heart Rate 102 H 04/21/23 11:44 Respiratory Rate 17 04/21/23 11:44 Blood Pressure 135/96 H 04/21/23 11:44 O2 Saturation 100 04/21/23 11:44 Temperature 98.1 F 04/21/23 11:44 Heart Rate 104 H 04/21/23 13:05 Respiratory Rate 17 04/21/23 11:44 Blood Pressure 124/58 L 04/21/23 13:05 O2 Saturation 100 04/21/23 11:44 If not protocol: Oxygen Flow, liters/minute - Procedures OB Procedure Performed: NST Diagnosis/Indication for NST: Other (Obestiy) Service Date of procedure: 04/21/23 (Read 04/21/2023) - Plan Plan: HPI: Patient is a 23-year-old G1, P0 at 39 weeks 0 days gestation presenting today from clinic due to nausea and vomiting for the last several days. This comes on suddenly and has no precipitating factors. No sick contacts that she was aware of. Has been vomiting for the most part of the last 6 days. She has good movement. No leaking, bleeding, contractions. All other symptoms reviewed and were negative except per HPI. Course LMP: 07/22/22 GAYATHRI by LMP: 04/28/23 US:09/26/2022 @ 10w1d c/w LMP( Final GAYATHRI: 04/28/2023 LDASA initiated @ 12.5 weeks (10/19/2022): (Obesity, nulliparity, race) EFW 2860 g, 73rd percentile, 03/24/2023 at 35 weeks Pre- Weight:203.4 BMI: 33.97 Blood type: O+ Rh:positive Antibody: Negative CBC: PLT 256 HCT 32.9 HGB 11.1 RUB:Immune VZV:Immune HBsAg: Negative HepC: Non reactive RPR/AB-EIA: Non reactive HIV: Non reactive PAP: 2021/normal per patient GC/CT: Negative at [facility] 10/12 HSV: Denies in self/partner Genetic testing: QUAD- Negative Covid: initial through [place] Flu: 2021 fall through [place] FAS: ordered 11/08 Placenta: anterior without previa Cord: 3VC COREY: 20.9 cm EFW: 280g, 50%ile 50gm OGCT: 105 3HR GTT: TDAP: Given 02/02 Breast Pump: Done 3rd trimester HB.4 HCT 33.6 PLT 256 GBS: POSITIVE Delivery plan: Contraception:Natural family planning Physical exam: General: Alert, oriented, no acute distress Head: Normal cephalic atraumatic Eyes: PERRLA, extraocular motions intact. Respiratory: Normal rate of respiration. No accessory muscle use, normal respiratory effort. Cardiovascular: Regular rate and rhythm Abdomen: Gravid, nontender, nondistended Extremities: Normal range of motion Neuro: Oriented x3. Normal movements Psych: Appropriate mood and affect. Normal judgment and insight FHT: 140 beats per baseline, moderate variability, accelerations present, no decelerations. Reactive NST [place]: Quiescent Plan Nausea and vomiting of -Patient initially admitted for observation, but felt better after hydration on arrival. Labs showed no abnormalities and she desired to go home. -Patient was hydrated, had labs done concerning for electrolyte imbalance or infection. Able to tolerate food. Has antiemetics at home and will try these if it worsens. Elevated blood pressure without diagnosis of hypertension -Offered induction of labor at term, patient declines. Did have 1 elevated blood pressure in triage, but none subsequently. Labs not concerning for preeclampsia. Induction of labor scheduled for next week.
--- NOTE | 2023-04-21 14:11 | Ultrasound Report ---
PROCEDURE: OB Follow up INDICATIONS: growth and fluid for vomiting, obesity OUTSIDE/PRIOR DATING DATA: Last menstrual period (LMP): 07/22/2022. LMP-based estimated date of delivery (GAYATHRI): 04/28/2023. First dating scan (date and location): 09/26/2022. Estimated date of delivery (GAYATHRI) from first dating scan: 04/23/2023. TECHNIQUE: Real-time scanning was performed of the fetus, with image documentation and biometric measurements. Endovaginal scanning: Not performed. COMPARISON: None. FINDINGS: General: A single living intrauterine gestation is present. Presentation: Vertex Placenta: Placental position is anterior, without previa. Amniotic fluid index: 9.4 cm, within normal limits for gestational age. heart rate: 135 beats per minute. Maternal cervical canal: Not imaged biometrics: Biparietal diameter: 9.4 cm, 38 weeks 2 days, 54% Head circumference: 34.1 cm, 39 weeks 1 day, 32% Abdominal circumference: 45.9 cm, 39 weeks 6 days, 78% Femur length: 7.4 cm, 37 weeks 6 days, 17% Estimated gestational age from initial scan: 39 weeks 5 days Composite gestational age from present scan: 38 weeks 6 days Estimated weight and percentile: 3699 g, 61% Measurement variability in biometric dating: +/- 10 days from 12-20 weeks gestation, +/- 2 weeks from 20-30 weeks gestation, +/- 3 weeks at 30 weeks gestation or more. Other: Not applicable. IMPRESSION: Single live intrauterine gestation with a composite gestational age of 38 weeks, 6 days which is concordant with dates by initial scan. Estimated weight percentile of 61%. Reviewed by: Otilia Kurtz MD on 04/21/2023 2:09 PM PST Approved by: Otilia Kurtz MD on 04/21/2023 2:09 PM PST Station ID: [id number]
[2023-04-21 14:38] LABS: ESTIMATED AVERAGE GLUCOSE 103 mg/dL (70-100); HEMOGLOBIN A1c% 5.2 % (4.27-6.07)
[2023-04-21] MEDS ORDERED: AMPICILLIN 1 GM in SODIUM CHLORIDE 0.9% MINIBAG 100 ML IV SCH (16:00)
--- NOTE | 2023-05-02 17:59 | DISCHARGE SUMMARY ---
Discharge Summary Admit Date: 04/21/23 Discharge Date: 04/21/23 Discharging Provider: Pierce Mckinley MD Code Status: Attempt Resuscitation Condition at Discharge: Good Discharge Disposition: 01 Home, Self Care - DIAGNOSES Admission Diagnoses: 39 weeks gestation Elevated blood pressure without diagnosis of hypertension Nausea vomiting of Discharge Diagnoses with Status of Each Condition: 39 weeks gestation: Unchanged Elevated blood pressure without diagnosis of hypertension: Stable Nausea vomiting of : Improved - HPI History of Present Illness: Patient did much better after hydration and was tolerating food.Patient did much better after hydration and was tolerating food. No additional elevations in blood pressure. No additional vomiting. Overall doing well. - HOSPITAL COURSE Hospital Course: Patient admitted for observation for nausea vomiting of and elevated blood pressures without diagnosis of hypertension. These were stable and patient desired to go home rather than stay for induction. She was discharged in good condition. - ALLERGIES Allergies/Adverse Reactions: Allergies Allergy/AdvReac Type Severity Reaction Status Date / Time No Known Drug Allergies Allergy Verified 04/30/23 15:31 - LABS Result Diagrams: 04/21/23 12:55 04/21/23 12:55 - FOLLOW UP [facility] - TIME SPENT Time Spent in Discharge (Minutes): 20
== END 2023-04-21 15:00 | disposition home or self-care (01) ==
LOC: WFO 11:30 → FBP 11:32 → WFO 11:33 → FBP 11:33
PROVIDERS: ADMIT Obstetrics & Gynecology; ATTEND Obstetrics & Gynecology
DX: O21.2 Late vomiting of pregnancy (principal); Z3A.39 39 weeks gestation of pregnancy; O26.893 Other specified pregnancy related conditions, third trimester; R03.0 Elevated blood-pressure reading, without diagnosis of hypertension; O99.213 Obesity complicating pregnancy, third trimester
CPT/HCPCS: 36415; 59025; 76816; 80053; 82570; 83036; 84156; 84443; 84550; 85025; 86850; 86900; 86901; J7120

== ENCOUNTER 2023-04-28 16:58 | Outpatient (CLI) | payer OTHER ==
[2023-04-28 17:26] VITALS: BP 135/90; O2SAT 100
--- NOTE | 2023-04-28 17:40 | PROCEDURE REPORT ---
- HPI Diagnosis/Indication for NST: Other (FHT in 160s in office.) Vital Signs Temperature 98.1 F 04/28/23 17:16 Heart Rate 89 04/28/23 17:16 Respiratory Rate 16 04/28/23 17:16 Blood Pressure 135/90 H 04/28/23 17:16 O2 Saturation 100 04/28/23 17:16 Temperature 98.1 F 04/28/23 17:16 Heart Rate 89 04/28/23 17:16 Respiratory Rate 16 04/28/23 17:16 Blood Pressure 135/90 H 04/28/23 17:16 O2 Saturation 100 04/28/23 17:16 If not protocol: Oxygen Flow, liters/minute at 40 weeks. - NST Procedure NST Procedure Start Time 11:40 Stop Time 13:16 NST reviewed in real time. baseline 150. + acels no decels. - Results and Plan Findings/Impression: reactive NST Plan: care as scheduled.
== END 2023-04-28 17:35 | disposition home or self-care (01) ==
LOC: WFO 16:58 → FBP 17:00 → WFO 17:35
PROVIDERS: ATTEND Obstetrics & Gynecology
DX: O36.8330 Maternal care for abnormalities of the fetal heart rate or rhythm, third trimester, not applicable or unspecified (principal); Z3A.40 40 weeks gestation of pregnancy
CPT/HCPCS: 59025

== ENCOUNTER 2023-04-30 14:21 | Inpatient (IN) | payer OTHER ==
[2023-04-30] MEDS ORDERED: TERBUTALINE 1 MG/ML VIAL SUBQ PRN (14:30)
[2023-04-30] MEDS ORDERED: OXYTOCIN 10 UNIT/ML VIAL IM PRN (14:30)
[2023-04-30] MEDS ORDERED: CARBOPROST TROMETHAMINE 250 MCG/ML AMP IM PRN (14:30)
[2023-04-30] MEDS ORDERED: METHYLERGONOVINE 0.2 MG/ML VIAL IM PRN (14:30)
[2023-04-30] MEDS ORDERED: OXYTOCIN/SODIUM CHLORIDE 500 ML IV PRN (14:30)
[2023-04-30] MEDS ORDERED: miSOPROStoL 200 MCG TABLET BC PRN (14:30)
[2023-04-30] MEDS ORDERED: fentaNYL 100 MCG/2 ML VIAL IVP PRN (14:30)
[2023-04-30] MEDS ORDERED: hydrALAZINE INJ 20 MG/ML VIAL IVP PRN ×2 (14:30)
[2023-04-30] MEDS ORDERED: LABETALOL 20 MG/4 ML SYRINGE IVP PRN ×3 (14:30)
[2023-04-30] MEDS ORDERED: lidocaine 1% 20 ML MDV ID PRN (14:30)
[2023-04-30] MEDS ORDERED: TRANEXAMIC ACID IN NACL 1,000 MG/100 ML BAG IV PRN (14:30)
[2023-04-30] MEDS ORDERED: NIFEdipine 10 MG CAPSULE PO PRN (14:30)
[2023-04-30] MEDS ORDERED: miSOPROStoL 200 MCG TABLET PR PRN (14:30)
[2023-04-30 15:50] LABS: BASOPHILS % (AUTO) 0.1 %; EOSINOPHILS # (AUTO) 0.1 10^3/uL (0.0-0.7); EOSINOPHILS % (AUTO) 0.8 %; HCT - HEMATOCRIT 34.9 % (37.0-47.0); HGB - HEMOGLOBIN 11.4 g/dL (12.0-16.0); LYMPHOCYTES # (AUTO) 1.3 10^3/uL (1.5-3.5); LYMPHOCYTES % (AUTO) 17.7 %; MEAN CORPUSCULAR HEMOGLOBIN 29.2 pg (27.0-31.0); MEAN CORPUSCULAR HGB CONC 32.7 g/dL (32.0-36.0); MEAN CORPUSCULAR VOLUME 89.5 fL (81.0-99.0); MEAN PLATELET VOLUME 11.3 fL (7.9-10.8); MONOCYTES # (AUTO) 0.7 10^3/uL (0.0-1.0); MONOCYTES % (AUTO) 9.2 %; NEUTROPHILS # (AUTO) 5.4 10^3/uL (1.5-6.6); NEUTROPHILS % (AUTO) 71.3 %; PLT - PLATELET COUNT 263 10^3/uL (130-450); RED CELL DISTRIBUTION WIDTH 13.2 % (12.0-15.0); WHITE BLOOD COUNT 7.5 x10^3/uL (4.8-10.8)
[2023-04-30] MEDS: SODIUM CHLORIDE FLUSH 0.9% 10 ML SYRINGE IVP SCH (16:12)
[2023-04-30] MEDS: miSOPROStoL 100 MCG TABLET BC SCH (16:39)
--- NOTE | 2023-04-30 18:11 | HISTORY & PHYSICAL EXAMINATION ---
Admit History - Visit Reason Visit Reason: Other (Induction of labor at 40 w 2d.) - : 1 Parity: 0 Care: positive: [facility] Risk/History: positive: None, Labor induction Complications This : positive: Other (obesity and 50 pound weight gain.) Smoking Status: Never smoker - Mother's Labs GBS: positive: Group B Strep Positive Rubella Status: positive: Immune - HPI Diagnosis/Indication for NST: Other (obesity, 40 w 2d ) Current EDU 04/28/23 Gestation 40 Weeks and 2 Days 1 Vital Signs Temperature 98.4 F 04/30/23 14:34 Temperature 98.4 F 04/30/23 14:34 Heart Rate Respiratory Rate Blood Pressure O2 Saturation If not protocol: Oxygen Flow, liters/minute - NST Procedure NST Procedure Start Time 17:05 Stop Time 17:35 reviewed. moderate variability, normal baseline, + acels. no decels. - Results and Plan Findings/Impression: reactive NST Plan: move forward with induction Meds/Allgy - Allergies Allergies/Adverse Reactions: Allergies Allergy/AdvReac Type Severity Reaction Status Date / Time No Known Drug Allergies Allergy Verified 04/30/23 15:31 Review of Systems - Eyes Eyes: denies: Spots in vision - Cardiovascular Cariovascular: denies: Edema - Respiratory Respiratory: denies: Cough - Gastrointestinal Gastrointestinal: denies: Abdominal pain, Nausea, Vomiting - Neurological Neurological: denies: Headache - Other Findings Other Findings: good movement. no bleeding. no contractions. Physical - Abdominal Exam Vital Signs: Temp Pulse Resp BP Pulse Ox O2 Flow Rate 98.4 F 04/30/23 14:34 Contraction Frequency (min/apart): none - Monitoring Strip Review: positive: Category I - Presentation Presentation: positive: Vertex - Vaginal Exam Membranes: positive: Membranes intact Dilation (in cm): 1 - Speculum Exam Speculum Exam Performed: positive: No Plan for Labor - Plan For Labor I expect patient to be DC'd or transferred within 96 hours.: Yes Plan for Labor: admit for labor induction at 40w2d. obesity. otherwise normal . has been on low dose ASA. some issues with n/v but good today. GBS + start with miso. process reviewed. last ultrasound 04/21/23. Biparietal diameter: 9.4 cm, 38 weeks 2 days, 54% Head circumference: 34.1 cm, 39 weeks 1 day, 32% Abdominal circumference: 45.9 cm, 39 weeks 6 days, 78% Femur length: 7.4 cm, 37 weeks 6 days, 17% Estimated gestational age from initial scan: 39 weeks 5 days Composite gestational age from present scan: 38 weeks 6 days Estimated weight and percentile: 3699 g, 61%
[2023-04-30] MEDS ORDERED: AMPICILLIN 1 GM in SODIUM CHLORIDE 0.9% MINIBAG 100 ML IV SCH (19:00)
[2023-05-01] MEDS ORDERED: ZOLPIDEM 5 MG TABLET PO PRN (00:31)
[2023-05-01] MEDS: CALCIUM CARBONATE CHEW 500 MG TABLET PO PRN (00:51)
--- NOTE | 2023-05-01 10:39 | PROVIDER PROGRESS NOTE ---
Labor Progress Note - Uterine Monitoring Uterine Monitoring Mode: positive: External toco Contraction Frequency (min/apart): q2-6 Contraction Intensity: positive: Mild Uterine Resting Tone: positive: Soft - Monitoring Monitor Mode: positive: External ultrasound Heart Rate Variability: positive: Moderate (6-25 bmp) Accelerations: positive: Present, 15x15 Decelerations: positive: None Strip Review: positive: Category I - Vaginal Exam Dilation (in cm): 3 Effacement (%): 80 Station: -2 Cervical Position: Midposition (and very soft.) - Labor Progress Note Labor Progress Note/Additional Text: patient is still very comfortable. s/p miso x 4. ready for #5. will shower and then give #5 and start ampicillin. baby cat 1.
[2023-05-01] MEDS: AMPICILLIN 2 GM in SODIUM CHLORIDE 0.9% MINIBAG 100 ML IV ONE ×2 (10:52→11:02)
[2023-05-01] MEDS: LACTATED RINGERS 1,000 ML IV PRN (10:53)
[2023-05-01] MEDS: AMPICILLIN 1 GM in SODIUM CHLORIDE 0.9% MINIBAG 100 ML IV SCH (15:11)
--- NOTE | 2023-05-01 19:47 | PROVIDER PROGRESS NOTE ---
Labor Progress Note - Uterine Monitoring Uterine Monitoring Mode: positive: External toco Contraction Frequency (min/apart): hard to assess but q 2-6 min it seems. Contraction Intensity: positive: Mild to moderate - Monitoring Monitor Mode: positive: External ultrasound Heart Rate Variability: positive: Moderate (6-25 bmp) Accelerations: positive: Present, 15x15 Decelerations: positive: Variable (x 1 when laying on her back for AROM.) Strip Review: positive: Category I - Vaginal Exam Dilation (in cm): 4 Effacement (%): 80 Station: -2 Cervical Position: Midposition (very soft.) - Labor Progress Note Labor Progress Note/Additional Text: agrees to AROM And pitocin if not having painful contractions in 2 hours. pitocin discussed. does want epidural eventually. discussed with RN coming on shift. AROM is done and fluid is clear.
[2023-05-01] MEDS: OXYTOCIN/SODIUM CHLORIDE 500 ML IV SCH (23:31)
[2023-05-01] MEDS: LACTATED RINGERS 1,000 ML IV SCH (23:31)
[2023-05-02] MEDS ORDERED: ROPIVACAINE 0.2% 200 MG/100 ML BAG EP ONE (03:03)
[2023-05-02] MEDS ORDERED: LIDOCAINE 2%-EPI 1:100000 20 ML MDV ONE (03:15)
[2023-05-02] MEDS ORDERED: NALOXONE 0.4 MG/ML VIAL IVP PRN ×2 (03:54→23:57)
[2023-05-02] MEDS ORDERED: ePHEDrine 50 MG/ML VIAL IVP PRN ×2 (03:54→23:57)
--- NOTE | 2023-05-02 03:54 | ANESTHESIA ---
Pre-Anesthesia VS, & Labs - Diagnosis Active labor - Procedure vaginal delivery Vital Signs: Temp Pulse Resp BP Pulse Ox O2 Flow Rate 36.9 C 04/30/23 14:34 Height: 5 ft 5 in Weight (kg): 113.398 kg Body Mass Index: 41.5 BMI Classification: Morbidly Obese - NPO Last Fluid Intake: clear liquids - Is Patient ?: Yes - Lab Results Current Lab Results: Laboratory Tests 04/30/23 15:20: WBC 7.5, RBC 3.90 L, Hgb 11.4 L, Hct 34.9 L, MCV 89.5, MCH 29.2, MCHC 32.7, RDW 13.2, Plt Count 263, MPV 11.3 H, Neut # (Auto) 5.4, Lymph # (Auto) 1.3 L, Henderson # (Auto) 0.7, Eos # (Auto) 0.1, Baso # (Auto) 0.0, Absolute Nucleated RBC 0.00, Nucleated RBC % 0.0 04/30/23 15:20: Blood Type O POSITIVE, Antibody Screen NEGATIVE Lab results reviewed: Yes Fish Bones: 04/30/23 15:20 Home Medications and Allergies Active Medications Calcium Carbonate/Glycine (Calcium Carbonate Chew 500 Mg Tablet) 500 mg PO QID PRN PRN Reason: Heartburn Last Admin: 05/01/23 00:51 Dose: 500 mg Carboprost Tromethamine (Carboprost Tromethamine 250 Mcg/Ml Amp) 250 mcg IM .ONCE PRN PRN Reason: Hemorrhage Fentanyl (Fentanyl 100 Mcg/2 Ml Vial) 50 mcg IVP Q1H PRN PRN Reason: Severe Pain (score 7-10) Hydralazine HCl (Hydralazine Inj 20 Mg/Ml Vial) 5 - 10 mg IVP Q20M PRN; Protocol PRN Reason: SBP> or= 160 OR DBP> or= 110 Hydralazine HCl (Hydralazine Inj 20 Mg/Ml Vial) 10 mg IVP .ONCE PRN; Protocol PRN Reason: SBP> or= 160 OR DBP> or= 110 Lactated Ringer's (Lr) 500 mls @ 999 mls/hr IV PRN PRN PRN Reason: NEEDED PER PROVIDER ORDERS Last Admin: 05/01/23 10:53 Dose: 125 mls/hr Oxytocin/Sodium Chloride (Pitocin/Sodium Chloride) 500 mls @ 999 mls/hr IV PRN PRN; Protocol PRN Reason: POST- HEMORR PREVENTION Tranexamic Acid (Tranexamic 1,000 Mg/100ml-Nacl) 1,000 mg in 100 mls @ 600 mls/hr IV Q30M PRN PRN Reason: EBL >1200mL and within 3hr Ampicillin Sodium 1 gm/ Sodium (Chloride) 100 mls @ 200 mls/hr IV Q4H FOR[facility], [facility]1983 Last Admin: 05/02/23 00:42 Dose: 200 mls/hr Oxytocin/Sodium Chloride (Pitocin/Sodium Chloride) 500 mls @ 2 mls/hr IV TITR CHAMP; Protocol Last Admin: 05/01/23 23:31 Dose: 2 milliunit/min, 2 mls/hr Lactated Ringer's (Lr) 1,000 mls @ 50 mls/hr IV .Q20H [facility], [facility]1983 Last Admin: 05/01/23 23:31 Dose: 50 mls/hr Labetalol HCl (Labetalol 20 Mg/4 Ml Syringe) 20 - 80 mg IVP Q10M PRN; Protocol PRN Reason: SBP> or= 160 OR DBP> or= 110 Labetalol HCl (Labetalol 20 Mg/4 Ml Syringe) 20 mg IVP .ONCE PRN; Protocol PRN Reason: SBP> or= 160 OR DBP> or= 110 Labetalol HCl (Labetalol 20 Mg/4 Ml Syringe) 20 - 40 mg IVP Q10M PRN; Protocol PRN Reason: SBP> or= 160 OR DBP> or= 110 Lidocaine HCl (Lidocaine 1% 20 Ml Mdv) 20 ml ID .ONCE PRN PRN Reason: PERINEAL REPAIR Stop: 05/03/23 14:31 Methylergonovine Maleate (Methylergonovine 0.2 Mg/Ml Vial) 0.2 mg IM .ONCE PRN PRN Reason: Hemorrhage Misoprostol (Misoprostol 200 Mcg Tablet) 600 mcg BC .ONCE PRN PRN Reason: Hemorrhage Misoprostol (Misoprostol 200 Mcg Tablet) 800 mcg FL .ONCE PRN PRN Reason: Hemorrhage Misoprostol (Misoprostol 100 Mcg Tablet) 25 mcg BC Q4H [facility], [facility] Last Admin: 05/01/23 15:16 Dose: 25 mcg Nifedipine (Nifedipine 10 Mg Capsule) 10 - 20 mg PO Q20M PRN; Protocol PRN Reason: SBP> or= 160 OR DBP> or= 110 Oxytocin (Oxytocin 10 Unit/Ml Vial) 10 unit IM .ONCE PRN PRN Reason: Step One if no IV access. Sodium Chloride (Sodium Chloride Flush 0.9% 10 Ml Syringe) 10 ml IVP PRN PRN PRN Reason: NEEDED PER PROVIDER ORDERS Sodium Chloride (Sodium Chloride Flush 0.9% 10 Ml Syringe) 10 ml IVP Q8H CHAMP Last Admin: 05/01/23 10:53 Dose: 10 ml Terbutaline Sulfate (Terbutaline 1 Mg/Ml Vial) 0.25 mg SUBQ .ONCE PRN PRN Reason: Tachystole Zolpidem Tartrate (Zolpidem 5 Mg Tablet) 5 mg PO QPM PRN PRN Reason: Insomnia Allergies/Adverse Reactions: Allergies Allergy/AdvReac Type Severity Reaction Status Date / Time No Known Drug Allergies Allergy Verified 04/30/23 15:31 Anes History & Medical History - Anesthetic History Family history of Anesthesia Complications: Denies Family history of Malignant Hyperthermia: Denies - Medical History Cardiovascular: reports: None Pulmonary: reports: None Gastrointestinal: reports: None Urinary: reports: None Neuro: reports: None Musculoskeletal: reports: None Endocrine/Autoimmune: reports: None Blood Disorders: reports: None Skin: reports: None Smoking Status: Never smoker Psychosocial: reports: No issues indicated History of Cancer?: No - Obstetrical History : 1 Parity: 0 Events: reports: None, Labor induction Complications: reports: Treated for GBS/UTI, Other (obesity and 50 pound weight gain.) Exam General: Alert, Oriented x3, Cooperative, No acute distress Dental: WNL Mouth Openin Fingerbreadth Neck Mobility: Normal Mallampati classification: II Thyromental Distance: 4-6 cm Mental/Cognitive Status: Alert/Oriented X3, Normal for patient Plan Anesthesia Type: Epidural Consent for Procedure(s) Verified and Reviewed: Yes Code Status: Attempt Resuscitation ASA classification: 2-Mild systemic disease Is this case an emergency?: No
--- NOTE | 2023-05-02 08:24 | PROVIDER PROGRESS NOTE ---
Labor Progress Note - Uterine Monitoring Uterine Monitoring Mode: positive: External toco Contraction Frequency (min/apart): 1-4 Contraction Intensity: positive: Moderate Uterine Resting Tone: positive: Soft - Monitoring Monitor Mode: positive: External ultrasound Heart Rate Baseline: 125 Heart Rate Variability: positive: Moderate (6-25 bmp) Accelerations: positive: Present, 15x15 Decelerations: positive: None Strip Review: positive: Category I - Vaginal Exam Dilation (in cm): 7 Effacement (%): 80 Station: -1 - Labor Progress Note Labor Progress Note/Additional Text: Patient haley, but not a regular pattern. Still 7cm. Will place IUPC and monitor labor curve. Ondansetron for nausea.
[2023-05-02] MEDS: ONDANSETRON 4 MG/2 ML VIAL IVP PRN (08:31)
[2023-05-02] MEDS: ROPIVACAINE 0.2% 200 MG/100 ML BAG EP PRN (10:24)
[2023-05-02] MEDS ORDERED: LIDOCAINE-MPF 2% 5 ML VIAL ONE (18:43)
--- NOTE | 2023-05-02 19:04 | PROVIDER PROGRESS NOTE ---
Labor Progress Note - Uterine Monitoring Uterine Monitoring Mode: positive: IUPC Contraction Frequency (min/apart): 2-4 Contraction Intensity: positive: Strong Uterine Resting Tone: positive: Soft - Monitoring Monitor Mode: positive: External ultrasound Heart Rate Baseline: 140 Heart Rate Variability: positive: Moderate (6-25 bmp) Accelerations: positive: Present, 15x15 Decelerations: positive: Variable, Intermittent (<50% x20 min) Strip Review: positive: Category II - Vaginal Exam Dilation (in cm): 10 Effacement (%): 100 Station: 1 - Labor Progress Note Labor Progress Note/Additional Text: Patient pushing for approximately 2 hours. Making good progress then stalled. Now isolated maternal fever without chorioamnionitis diagnosis. Will get one dose of gentamycin as she has been getting ampicillin already. Also treat with tylenol. Will allow patient to rest as she gets another bolus from anesthesia then resume pushing.
[2023-05-02] MEDS ORDERED: GENTAMICIN 80 MG/2 ML VIAL ONE (19:26)
[2023-05-02] MEDS: SODIUM CHLORIDE 0.9% IV ONE (19:44)
[2023-05-02] MEDS: GENTAMICIN IV ONE (19:44)
[2023-05-02] MEDS: ACETAMINOPHEN 500 MG TABLET PO PRN (19:47)
[2023-05-02] MEDS ORDERED: LIDOCAINE-MPF 1% 5 ML VIAL ONE (20:03)
--- NOTE | 2023-05-02 20:38 | PROVIDER PROGRESS NOTE ---
Labor Progress Note - Uterine Monitoring Uterine Monitoring Mode: positive: IUPC : 2-3 Contraction Intensity: positive: Strong Uterine Resting Tone: positive: Soft - Monitoring Monitor Mode: positive: External ultrasound Heart Rate Baseline: 140 Accelerations: positive: Present, 15x15 Decelerations: positive: Variable (With pushing), Intermittent (<50% x20 min) (With pushing) Strip Review: positive: Category II - Vaginal Exam Dilation (in cm): 10 Effacement (%): 100 Station: 1 - Labor Progress Note Labor Progress Note/Additional Text: Patient getting more uncomfortable, especially in her left hip. Discussed minimal progress in descent. section was discussed. Risks, benefits and alternatives were discussed including but not limited to infection, bleeding that may require blood products or hysterectomy for life saving measures, injury to surrounding organs including but not limited to bowel, bladder, ureters, tubes and ovaries and/or the baby. Should injury occur it could require longer/additional surgery to repair. All questions were answered posed by patient. She desires to push on hands and knees prior to consenting to section. Advised that we can continue pushing, but as she is getting tired, her pressure will likely become less and less effective.
[2023-05-02] MEDS ORDERED: ceFAZolin (2G) 2 GM in SODIUM CHLORIDE 0.9% MINIBAG 100 ML IV ONE (21:30)
[2023-05-02] MEDS ORDERED: ceFAZolin (2G) 2 GM in SODIUM CHLORIDE 0.9% MINIBAG 100 ML IV SCH (22:00)
[2023-05-02] MEDS ORDERED: AZITHROMYCIN INJ 500 MG in SODIUM CHLORIDE 0.9% 250 ML IV SCH (22:00)
[2023-05-02] MEDS ORDERED: AZITHROMYCIN INJ 500 MG in SODIUM CHLORIDE 0.9% 250 ML IV ONE (22:00)
[2023-05-02] MEDS ORDERED: LACTATED RINGERS 1,000 ML IV SCH ×3 (22:00→23:45)
[2023-05-02] MEDS ORDERED: CARBOPROST TROMETHAMINE 250 MCG/ML AMP IM ONE (22:03)
[2023-05-02] MEDS ORDERED: METHYLERGONOVINE 0.2 MG/ML VIAL ONE (22:03)
[2023-05-02] MEDS ORDERED: miSOPROStoL 200 MCG TABLET ONE (22:03)
[2023-05-02] MEDS ORDERED: fentaNYL 100 MCG/2 ML VIAL ONE ×2 (22:06→22:55)
[2023-05-02] MEDS ORDERED: KETAMINE 200 MG/20 ML VIAL ONE (22:22)
[2023-05-02] MEDS ORDERED: SODIUM CHLORIDE 0.9% 10 ML VIAL IVP ONE (22:48)
[2023-05-02] MEDS ORDERED: MORPHINE PF 5 MG/10 ML VIAL ONE (22:48)
[2023-05-02] MEDS ORDERED: PROPOFOL 200 MG/20 ML VIAL IVP ONE (22:51)
[2023-05-02] MEDS ORDERED: BUPIVACAINE 0.25% PF 30 ML VIAL ONE (22:57)
[2023-05-02] MEDS: BUPIVACAINE 0.25% PF 30 ML VIAL SUBQ ONE ×2 (23:04)
[2023-05-02] MEDS ORDERED: SIMETHICONE CHEW 80 MG TABLET PO PRN (23:08)
[2023-05-02] MEDS ORDERED: ONDANSETRON ODT 4 MG TABLET TL PRN (23:08)
[2023-05-02] MEDS ORDERED: SODIUM CHLORIDE FLUSH 0.9% 10 ML SYRINGE IVP PRN (23:08)
[2023-05-02] MEDS ORDERED: OXYTOCIN/SODIUM CHLORIDE 500 ML IV PRN (23:08)
[2023-05-02] MEDS ORDERED: oxyCODONE 5 MG TABLET PO PRN (23:08)
--- NOTE | 2023-05-02 23:14 | OPERATIVE REPORT ---
Operative Report - General Admit Date: 04/30/23 Procedure Date: 05/02/23 Planned Procedure: Low-transverse section Pre-Op Diagnosis: Failure to descend Procedure Performed: Low-transverse section Post Op Diagnosis: Same - Procedure Note Primary Surgeon: Pierce Mckinley MD Secondary Surgeon: JOON Negro Anesthesia Provider: Renée Puga CRNA Anesthesia Technique: Epidural Pathology: None IV Fluids (mL): 1,800 Estimated Blood Loss (mL): 850 Urine Output (mL): 50 Findings: Normal-appearing ovaries and tubes. Complications: None - Other Other Information/Narrative: Pre-Op diagnoses: 40 weeks gestation Failure to descend Obesity Postop diagnosis Same Status post primary low-transverse section Delivery of live young section was recommended. Risks, benefits and alternatives were discussed including but not limited to infection, bleeding that may require blood products or hysterectomy for life saving measures, injury to surrounding organs including but not limited to bowel, bladder, ureters, tubes and ovaries and/or the baby. Should injury occur it could require longer/additional surgery to repair. The patient stated understanding and desired to proceed. All questions were answered posed by patient. Prior to being taken to the OR, 2 g cefazolin and 500 mg azithromycin were administered. She had previous received 5 mg/kg's of gentamicin as well as several doses of ampicillin for GBS, however been several hours. The patient was taken to the operating room where regional anesthesia was found to be adequate. She was then prepared and draped in the usual sterile fashion in the dorsal supine position with a leftward tilt displacing the uterus. Ellis was draining to gravity. SCDs were on bilateral lower extremities. A pfannenstiel skin incision was then made with the scalpel and carried through to the underlying layer of fascia. The fascia was incised in the midline and the incision extended laterally with the Krishnan scissors. The superior aspect of the facial incision was then grasped with the Tez clamps, elevated and the underlying rectus muscles dissected off sharply. Attention was then turned to the inferior aspect of this incision which in a similar fashion was grasped, elevated with the Tez clamps and the rectus muscle dissected off sharply. The rectus muscles were in the midline. The peritoneum identified, grasped with the pick-ups and entered sharply with the Metzenbaum scissors. The peritoneal incision was then extended superiorly and inferiorly with good visualization of the bladder. The bladder blade was inserted. The vesicouterine peritoneum was identified, grasped with the pick-ups, and entered sharply with Metzenbaum scissors. This incision was then extended laterally and the bladder flap created digitally. The bladder blade was reinserted. The lower uterine segment was identified and incised in a transverse fashion with the scalpel. The uterine incision was then extended bluntly laterally. Entry into the uterus showed thick meconium.. The bladder blade was removed. The fetus was in a cephalic presentation deep in the pelvis. The infants head delivered atraumatically. The anterior shoulders were delivered followed by the posterior shoulders then the remainder of the body. The infants mouth and nose were bulb suctioned. The umbilical cord was clamped times two and cut. The was handed to the pediatric team. The placenta was removed with gentle traction. Oxytocin was added to the IV fluid and was allowed to run freely. The uterus was exteriorized and cleared of all clots and debris. The uterine incision was inspected and found to have an extension to the left lower segment and was repaired with 0 Vicryl in a running, locked fashion. A second imbricating layer was performed. Several additional [id number] stitches were required to stop the bleeding. Upon inspection, the repaired hysterotomy was found to be hemostatic. The uterus was firm and returned to the abdomen. The patient did not tolerate manipulation of the uterus or bowel and received extra anesthesia for pain control. The gutters were cleared of all clots and debris. The muscle layer was examined and found to be hemostatic. The fascia was reapproximated with 0 Vicryl in a running fashion. The subcutaneous tissue was closed with 2-0 Vicryl. She again had trouble with manipulation of the skin and 0.25% marcaine was injuected into the subcutaneous tissue. The skin was closed in a subcuticular fashion with 4-0 Monocryl. The patient tolerated the procedure well. Sponge, lap and needle counts were correct times three. The patient was taken to the recovery room in stable condition. I appreciate the assistance of JOON Negro during this procedure, and the assistance in retraction, visualization, dissection, and overall assistance during the case were instrumental to the patient's wellbeing. APGARs: 7/8 weight: Pending
[2023-05-02] MEDS: LACTATED RINGERS 1,000 ML IV ONE (23:46)
[2023-05-02] MEDS ORDERED: fentaNYL 100 MCG/2 ML VIAL IVP PRN (23:57)
[2023-05-02] MEDS ORDERED: METOCLOPRAMIDE 10 MG/2 ML VIAL IVP PRN (23:57)
[2023-05-02] MEDS ORDERED: HYDROmorphone 0.5 MG/0.5 ML SYRINGE IVP PRN (23:57)
[2023-05-02] MEDS ORDERED: MORPHINE 2 MG/ML CARPUJECT IVP PRN (23:57)
[2023-05-02] MEDS ORDERED: ONDANSETRON 4 MG/2 ML VIAL IVP PRN (23:57)
[2023-05-02] MEDS ORDERED: ATROPINE ABBOJECT 1 MG/10 ML SYRINGE IVP PRN (23:57)
--- NOTE | 2023-05-03 00:05 | ANESTHESIA POST OP EVALUATION ---
Anesthesia Post Eval - Post Anesthesia Eval Vitals: Last Vital Signs Temp 37.2 C 05/02/23 23:51 Pulse 97 05/02/23 23:51 Resp 18 05/02/23 23:51 BP 132/82 H 05/02/23 23:51 Pulse Ox 100 05/02/23 23:51 O2 Flow Rate CV Function Including HR & BP: Stable Pain Control: Satisfactory Nausea & Vomiting: Negative Mental Status: Baseline Respiratory Status: Airway Patent Hydration Status: Satisfactory Anesthesia Complications: None
[2023-05-03] MEDS ORDERED: SODIUM CHLORIDE FLUSH 0.9% 10 ML SYRINGE IVP SCH (01:00)
[2023-05-03] MEDS: diphenhydrAMINE INJ 50 MG/ML VIAL IVP PRN (03:03)
[2023-05-03] MEDS: SODIUM CHLORIDE FLUSH 0.9% 10 ML SYRINGE IVP PRN (03:03)
[2023-05-03] MEDS: LACTATED RINGERS 1,000 ML IV SCH (03:03)
[2023-05-03] MEDS ORDERED: NALBUPHINE 10 MG/ML AMP IVP ONE ×2 (03:06→05:30)
[2023-05-03] MEDS: ACETAMINOPHEN 500 MG TABLET PO SCH (04:19)
[2023-05-03] MEDS: KETOROLAC 30 MG/ML VIAL IVP SCH (05:30)
[2023-05-03] MEDS ORDERED: ONDANSETRON 4 MG/2 ML VIAL IVP ONE (06:00)
[2023-05-03 06:16] LABS: BASOPHILS % (AUTO) 0.3 %; EOSINOPHILS # (AUTO) 0.1 10^3/uL (0.0-0.7); EOSINOPHILS % (AUTO) 0.9 %; HCT - HEMATOCRIT 26.8 % (37.0-47.0); HGB - HEMOGLOBIN 8.7 g/dL (12.0-16.0); LYMPHOCYTES # (AUTO) 1.1 10^3/uL (1.5-3.5); LYMPHOCYTES % (AUTO) 7.4 %; MEAN CORPUSCULAR HEMOGLOBIN 29.2 pg (27.0-31.0); MEAN CORPUSCULAR HGB CONC 32.5 g/dL (32.0-36.0); MEAN CORPUSCULAR VOLUME 89.9 fL (81.0-99.0); MEAN PLATELET VOLUME 11.1 fL (7.9-10.8); MONOCYTES # (AUTO) 1.4 10^3/uL (0.0-1.0); MONOCYTES % (AUTO) 9.3 %; NEUTROPHILS # (AUTO) 12.3 10^3/uL (1.5-6.6); NEUTROPHILS % (AUTO) 81.4 %; PLT - PLATELET COUNT 200 10^3/uL (130-450); RED BLOOD COUNT 2.98 10^6/uL (4.20-5.40); RED CELL DISTRIBUTION WIDTH 13.5 % (12.0-15.0); WHITE BLOOD COUNT 15.1 x10^3/uL (4.8-10.8)
--- NOTE | 2023-05-03 09:25 | PROVIDER PROGRESS NOTE ---
Subjective - General Admit Date: 04/30/23 Procedure Date: 05/02/23 Post Op Days: 1 Procedure Performed: Low transverse section - Review of Systems Wound/Incisions: positive: Dressing dry and intact - Other Other Information/Narrative: Subjective Patient reports she is doing well. Lochia appropriate. Denies heavy bleeding. Ambulating. Pelvic and abdominal pain well-controlled. Tolerating oral intake. Diet: Regular. Voiding without difficulty. Passing flatus. Denies BM. Patient is bonding with baby in room Breast feeding going well. Denies feeling lightheaded, dizzy or excessively fatigued. Objective General: Alert, oriented, no apparent distress. Cardiovascular: Regular rate. Regular rhythm. Lungs: No increased work of breathing. Abdomen: Uterus firm. Below umbilicus. No guarding or rebound. Extremities: No pain on palpation. No cords palpated. Distal pulses intact. Incision: Clean, dry, bandage in place. Assessment and Plan day 1. -Routine care -Lovenox 12 hours after epidural. -Anticipate discharge in 1 to 2 days Elevated blood pressure without diagnosis of hypertension -Occasional elevated blood pressure while pushing, none since. -Will continue to observe. Isolated maternal fever -Treated with ampicillin and gentamicin -Will treat with 1 additional dose of gentamicin this afternoon. Objective - Patient Data Vital Signs: Vital Signs x48h Temp Pulse Resp BP Pulse Ox 05/03/23 04:13 98.2 F 96 16 110/61 99 05/03/23 02:40 98.2 F 94 20 149/93 H 98 05/03/23 01:44 98.6 F 92 16 124/79 98 Weight: Weight 05/01/23 05/02/23 05/03/23 23:59 23:59 23:59 Weight (kg) 113.398 kg Intake & Output: Intake and Output Totals x24h 05/01/23 05/02/23 05/03/23 23:59 23:59 23:59 Intake Total 218.671 0804.933 300 Output Total 300 1340 Balance 652.221 6830.933 -1040 - Lab Results Lab Results: 05/03/23 06:05 Other Lab Results: Lab Results x24hrs 05/03/23 Range/Units 06:05 WBC 15.1 H (4.8-10.8) x10^3/uL RBC 2.98 L (4.20-5.40) 10^6/uL Hgb 8.7 L (12.0-16.0) g/dL Hct 26.8 L (37.0-47.0) % MCV 89.9 (81.0-99.0) fL MCH 29.2 (27.0-31.0) pg MCHC 32.5 (32.0-36.0) g/dL RDW 13.5 (12.0-15.0) % Plt Count 200 (130-450) 10^3/uL MPV 11.1 H (7.9-10.8) fL Neut # (Auto) 12.3 H (1.5-6.6) 10^3/uL Lymph # (Auto) 1.1 L (1.5-3.5) 10^3/uL [place]ami # (Auto) 1.4 H (0.0-1.0) 10^3/uL Eos # (Auto) 0.1 (0.0-0.7) 10^3/uL Baso # (Auto) 0.0 (0.0-0.1) 10^3/uL Absolute Nucleated RBC 0.00 x10^3/uL Nucleated RBC % 0.0 /100WBC - Current Medications Current Medications: Current Medications Generic Name Dose Route Start Last Admin Trade Name Freq PRN Reason Stop Dose Admin Acetaminophen 1,000 mg 05/03/23 04:00 05/03/23 04:19 Acetaminophen 500 Mg Tablet PO 1,000 mg Q8H CHAMP Administration Calcium Carbonate/Glycine 500 mg 05/01/23 00:31 05/01/23 00:51 Calcium Carbonate Chew 500 Mg Tablet PO 500 mg QID PRN Administration Heartburn Diphenhydramine HCl 25 mg 05/03/23 02:53 05/03/23 03:03 Diphenhydramine Inj 50 Mg/Ml Vial IVP 25 mg Q6H PRN Administration Allergy Symptoms Lactated Ringer's 500 mls @ 999 mls/hr 04/30/23 14:30 05/01/23 14:53 Lr IV Infused PRN PRN Infusion NEEDED PER PROVIDER ORDERS Ropivacaine 200 mg in 100 mls @ 0 mls/hr 05/02/23 03:54 05/02/23 17:50 Naropin 0.2% EP 12 mls/hr PRN PRN Administration PAIN Protocol Per Protocol Lactated Ringer's 1,000 mls @ 100 mls/hr 05/02/23 23:45 05/03/23 03:03 Lr IV 100 mls/hr .Q10H CHAMP Administration Ketorolac Tromethamine 30 mg 05/02/23 23:45 05/03/23 05:30 Ketorolac 30 Mg/Ml Vial IVP 05/03/23 17:46 30 mg Q6H CHAMP Administration Sodium Chloride 10 ml 04/30/23 14:30 05/03/23 05:33 Sodium Chloride Flush 0.9% 10 Ml Syringe IVP 10 ml PRN PRN Administration NEEDED PER PROVIDER ORDERS Sodium Chloride 10 ml 04/30/23 15:00 05/02/23 16:18 Sodium Chloride Flush 0.9% 10 Ml Syringe IVP Not Given Q8H CHAMP
[2023-05-03] MEDS: metroNIDAZOLE 500 MG/100 ML 500 MG/100 ML BAG IV ONE (10:01)
[2023-05-03] MEDS: ENOXAPARIN 40 MG/0.4 ML SYRINGE SUBQ SCH (12:01)
[2023-05-03] MEDS ORDERED: GENTAMICIN 80 MG/2 ML VIAL ONE (19:28)
[2023-05-03] MEDS: GENTAMICIN 400 MG in SODIUM CHLORIDE 0.9% 100ML 100 ML IV ONE (19:53)
[2023-05-03 20:37] VITALS: O2SAT 100
[2023-05-03] MEDS: IBUPROFEN 600 MG TABLET PO SCH (23:58)
[2023-05-03] MEDS: DOCUSATE SODIUM 100 MG CAPSULE PO SCH (23:58)
[2023-05-04] MEDS ORDERED: KETOROLAC 30 MG/ML VIAL IVP SCH
--- NOTE | 2023-05-04 09:12 | PHARMACY PROGRESS NOTE ---
- Best Possible Medication History Admit Date and Time: 04/30/231910 Processed by: Pharmacy Medication History completed: No Patient Interview: Pt unable to participate As the person ultimately responsible for medication therapy, providers are able to order a medication from an existing home medication list in [facility] via the "Reconcile Routine" prior to Confirmation of that medication by account support associate. Such practice is discouraged except when the physician, in their clinical judgment, deems that a medical need exists for a medication without regard to previous use.
--- NOTE | 2023-05-04 12:34 | DISCHARGE SUMMARY ---
Discharge Summary Admit Date: 04/30/23 Discharge Date: 05/04/23 Discharging Provider: Pierce Mckinley MD Code Status: Attempt Resuscitation Condition at Discharge: Good Discharge Disposition: 01 Home, Self Care - DIAGNOSES Admission Diagnoses: 40 week gestation Induction of laboe Discharge Diagnoses with Status of Each Condition: 40 weeks gestation Isolated maternal fever Failure to descent Delivery of live young by section - HPI History of Present Illness: Subjective Patient reports she is doing well. Lochia appropriate. Denies heavy bleeding. Ambulating. Pelvic and abdominal pain well-controlled. Tolerating oral intake. Diet: Regular. Voiding without difficulty. Passing flatus. Denies BM. Patient is bonding with baby in room Breast feeding going well. Denies feeling lightheaded, dizzy or excessively fatigued. Objective General: Alert, oriented, no apparent distress. Cardiovascular: Regular rate. Regular rhythm. Lungs: No increased work of breathing. Abdomen: Uterus firm. Below umbilicus. No guarding or rebound. Extremities: No pain on palpation. No cords palpated. Distal pulses intact. Incision: Clean, dry, and intact. - HOSPITAL COURSE Hospital Course: Patient was admitted at 40 weeks gestation for induction of labor. She received misoprostol then amniotomy followed by oxytocin. Received epidural for pain control. She progressed to complete and pushed for over 3 hours. Began having pain and maternal discomfort as well as exhaustion and requested a section. section was performed with a late second stage extraction and a small left-sided uterine extension that was repaired at time of surgery. Patient is very uncomfortable during surgery, but appearing mostly anxiety as she was intermittently sleeping and then having pain and her course was unremarkable and had excellent pain control. - ALLERGIES Allergies/Adverse Reactions: Allergies Allergy/AdvReac Type Severity Reaction Status Date / Time No Known Drug Allergies Allergy Verified 04/30/23 15:31 - MEDICATIONS Home Medications: Ambulatory Orders Medication Instructions Recorded Confirmed Ibuprofen [Motrin] 600 mg PO Q6H PRN #30 tab 05/04/23 oxyCODONE [Roxicodone] 5 mg PO Q4H PRN #10 tablet 05/04/23 - LABS Result Diagrams: 05/03/23 06:05 - FOLLOW UP Follow Up: With Pierce Mckinley MD and [facility] - TIME SPENT Time Spent in Discharge (Minutes): 25
--- NOTE | 2023-05-04 12:34 | Discharge Plan ---
Discharge Plan Problem Reviewed?: Yes Disposition: Home, Self Care Condition: Good Prescriptions: Ibuprofen [Motrin] 600 mg PO Q6H PRN #30 tab PRN Reason: Pain oxyCODONE [Roxicodone] 5 mg PO Q4H PRN #10 tablet PRN Reason: Severe Pain Diet: Regular Shower Restrictions: No Instruction Topics: C Section Dc, Depression No Smoking: If you smoke, Please STOP! Call for help. Follow-up with: Pierce Mckinley MD [Provider Admit Priv/Credential] -
[2023-05-04 18:33] VITALS: BP 135/78
--- NOTE | 2023-05-04 18:34 | Labor Flowsheet ---
Labor Flowsheet Datetime Report Generated by CPN: 05/04/2023 18:34 Datetime: 05/02/2023 21:14 I/O Interventions: Ellis Cath Inserted Datetime: 05/02/2023 21:06 PROCEDURE TIME OUT Procedure Verify: Correct Patient Identity; Accurate Procedure Consent Form; Addressed Need to Admi nister Antibiotics or Fluids for Irrigation; Safety Precautions Based on Patient History or Medicatio n Use Communication Comments: Consent signed Datetime: 05/02/2023 21:04 ANESTHESIA Anesthesia Plans: Epidural Anesthesia Comments: c/s procedure Datetime: 05/02/2023 21:00 UTERINE ACTIVITY Monitor Mode: Internal Frequency (min): 2-3 Quality: Strong Duration (sec): 90-120 Resting Tone (Palpate): Relaxed Contraction Comments: unable to asses mvu ASSESSMENT A Monitor Mode: Telemetry FHR Baseline Rate : 150 Variability: Moderate 6-25 bpm Accelerations: 15X15 Decelerations: None Category: Category I Datetime: 05/02/2023 20:53 Temperature (C): 36.3 LaborFlag: Labor Datetime: 05/02/2023 20:07 VITAL SIGNS NBP Sys/Shannan/Mean (mmHg): 121 : 86 : 95 Pulse: 115 Epidural Procedure Other: Redose Datetime: 05/02/2023 20:00 FHR Baseline Changes: Return to Previous Baseline Datetime: 05/02/2023 19:47 Analgesics/Sedatives: Tylenol (mg) @ 1000 Datetime: 05/02/2023 19:44 Pattern: Normal: <= 5 Contractions in 10 Minutes Resting Tone IUP (mmHg): 20-30 Intensity IUP (mmHg): 50-70 Datetime: 05/02/2023 19:41 STAGE 2 Pushing Position: Pushing with Contractions Datetime: 05/02/2023 19:39 Antibiotics: Gentamicin IV (mg) @ 286 Datetime: 05/02/2023 19:36 COMMUNICATION Communication: Provider at Bedside Provider Notified (Name): Dr. Elías, MD Datetime: 05/02/2023 19:30 Secor Units (mmHg): 120 Datetime: 05/02/2023 19:15 Oxygen Method: Room Air Datetime: 05/02/2023 18:48 Actions for Decelerations: IV Bolus Datetime: 05/02/2023 18:35 MEDICATIONS Pitocin (milliunits): Increased to @ 17 Datetime: 05/02/2023 17:08 Pushing Progress: Descent with Pushing; Caput Noted Datetime: 05/02/2023 16:59 SpO2 (%): 98 Datetime: 05/02/2023 16:18 Monitor Interventions for FHR: Ultrasound Adjusted Datetime: 05/02/2023 16:10 Monitor Interventions for UA: IUPC Inserted Datetime: 05/02/2023 15:40 PATIENT CARE IV/Blood Work: IV Started Datetime: 05/02/2023 15:00 VAGINAL EXAM Dilatation (cm): 10.0 Effacement (%): 100 Station: 0 Exam by: Inocencio Collado, journalism internship Comments: per DrShala Mckinley, restart pit @ half previous dose Datetime: 05/02/2023 14:46 Antiemetics/Antacids: Zofran (mg) @ Datetime: 05/02/2023 13:55 Patient Care Comments: PIV leaking/failed Datetime: 05/02/2023 12:59 Patient Position/Activity: Left Lateral Datetime: 05/02/2023 12:25 Vaginal Bleeding: Small Cervix, Consistency: Soft Cervix, Position: Midposition Datetime: 05/02/2023 08:25 Stage of : Labor Presentation 'A': Cephalic MA'S SCORE Dilatation (cm): 5 or greater cms Effacement: >80_ effaced Station: minus 1 to 0 Consistency: Soft Position: Midposition Total Ma's Score: 11 : 9-14 = Usually no failure for induction Datetime: 05/02/2023 08:02 Membranes Ruptured Date/Time: 05/01/2023 18:58 Datetime: 05/02/2023 07:20 Notification Reason: Status Update; Labor Status; Uterine Activity Datetime: 05/02/2023 06:44 Pitocin Checklist: At Least 1 Acceleration of 15 bpm x 15 Seconds in 30 Minutes or Adequate Variabi lity; No More than 1 Late Deceleration Occurred in Past 30 Minutes; No More than 2 Variable Decelerat ions > 60 Seconds in Duration and decreasing >60 bpm in 30 minutes; No More than 5 Uterine Contractio ns in 10 Minutes for any 20 Minute Interval; Uterus Palpates Soft between Contractions Datetime: 05/02/2023 05:58 Comments: indeterminate of type of decel d/t toco being replaced Datetime: 05/02/2023 03:40 Epidural Procedure: Completed Datetime: 05/02/2023 03:21 Epidural Positioning: Sitting Datetime: 05/02/2023 03:01 PAIN Pain Scale: 5 Pain Type: Contraction Pain Relief Measures: Comfort Measures Comfort Measures: Breathing/Relaxation Datetime: 05/02/2023 01:37 Vaginal Exam Comments: per pt request Datetime: 05/02/2023 00:54 Pain Coping: Breathing Through Contractions; Declines Medication or Epidural; Crying Datetime: 05/01/2023 23:08 TEACHING Plan of Care: Plan of Care Discussed Pain Management: Epidural; PRN Medications; Comfort Measures Datetime: 05/01/2023 23:02 Pain Assessment Comments: pt requesting nirtous Datetime: 05/01/2023 19:28 MATERNAL ASSESSMENT Level of Consciousness: Alert DTR's/Clonus: DTRs 2+; No Clonus Headache: Denies Breath Sounds, Left: Clear and Equal Breath Sounds, Right: Clear and Equal Nausea/Vomiting: Denies RUQ Epigastric Pain: Denies Datetime: 05/01/2023 19:16 Pain Goal: 6 Labor/Induction: Induction Datetime: 05/01/2023 18:58 Membrane Status: Ruptured Membranes Rupture Method: Artificial Amniotic Fluid Color: Bloody Amniotic Fluid Amount: Small Datetime: 05/01/2023 18:43 Respirations: 16 Datetime: 05/01/2023 15:25 Cervical Ripening Agents: Cytotec @ Datetime: 05/01/2023 08:49 Temperature Route: Oral Datetime: 04/30/2023 21:00 Cervical Ripening Agents Other: 25
== END 2023-05-04 18:33 | disposition home or self-care (01) | DRG 787 ==
LOC: WFO 14:21 → FBP 14:23 → WFO 14:29 → UNDOADMOB 14:30 → FBP 14:30 → OBSVTOIN 19:11 → INTOOBSV 19:11 → OBSVTOIN 05-01 19:11 → FBP 05-01 19:11 → UNDODISIN 05-04 18:33
PROVIDERS: ADMIT Obstetrics & Gynecology; ATTEND Obstetrics & Gynecology
PROC: 10907ZC Drainage of Amniotic Fluid, Therapeutic from Products of Conception, Via Natural or Artificial Opening (ICD-10-PCS; 2023-05-01)
PROC: 3E033VJ Introduction of Other Hormone into Peripheral Vein, Percutaneous Approach (ICD-10-PCS; 2023-05-01)
PROC: 3E0DXGC Introduction of Other Therapeutic Substance into Mouth and Pharynx, External Approach (ICD-10-PCS; 2023-05-01)
PROC: 10H07YZ Insertion of Other Device into Products of Conception, Via Natural or Artificial Opening (ICD-10-PCS; 2023-05-02)
PROC: 10D00Z1 Extraction of Products of Conception, Low, Open Approach (ICD-10-PCS; principal; 2023-05-02 21:30)
DX: O32.4XX0 Maternal care for high head at term, not applicable or unspecified (principal); O75.2 Pyrexia during labor, not elsewhere classified; Z3A.40 40 weeks gestation of pregnancy; Z37.0 Single live birth; O75.81 Maternal exhaustion complicating labor and delivery; O99.214 Obesity complicating childbirth; O99.824 Streptococcus B carrier state complicating childbirth; Z79.82 Long term (current) use of aspirin; Z79.899 Other long term (current) drug therapy; O76 Abnormality in fetal heart rate and rhythm complicating labor and delivery; O75.89 Other specified complications of labor and delivery; R11.0 Nausea; R03.0 Elevated blood-pressure reading, without diagnosis of hypertension
CPT/HCPCS: 36415; 85025; 86850; 86900; 86901; 96365; A9270; J1200; J1580; J1650; J2210; J2274; J3490; J7120